=== PATIENT | male | born 1965 | race Caucasian/White ===

== ENCOUNTER 2020-08-19 08:03 | Outpatient (REF) | payer OTHER, SELFPAY ==
[2020-08-19 09:01] LABS: MANUAL DIFF FLAG NO
[2020-08-19 09:03] LABS: Basophils Percent Auto 0.4 % (0-2); Eosinophils Absolute Auto 0.1 X10*3/uL (0.0-0.4); Eosinophils Percent Auto 1.5 % (0-4); Hemoglobin 19.5 g/dl (14.0-18.0); Imm Gran Abs Auto 0.03 X10*3/uL (0.00-0.03); Imm Gran Pct Auto 0.4 % (0.0-0.4); Lymphocytes Absolute Auto 1.8 X10*3/uL (1.2-4.9); Lymphocytes Percent Auto 22.1 % (20-40); Mean Corpuscular HGB Conc 33.4 g/dl (31.0-36.0); Mean Corpuscular Hemoglobin 29.3 pg (27.0-33.0); Mean Corpuscular Volume 87.8 fL (80-98); Mean Platelet Volume 10.3 fL (9.4-12.4); Monocytes Absolute Auto 0.6 X10*3/uL (0.1-1.2); Monocytes Percent Auto 7.4 % (2-11); Neutrophils Absolute Auto 5.6 X10*3/uL (2.0-8.3); Neutrophils Percent Auto 68.2 % (45-73); Platelet Count 269 X10*3/uL (160-400); Red Blood Count 6.65 X10*6/uL (4.60-5.80); Red Cell Distribution Width 13.8 % (11.0-16.0); White Blood Count 8.2 X10*3/uL (4.8-10.8)
[2020-08-19 09:04] LABS: Glucose Urine UA NEG (NEG); Leukocyte Esterase Urine NEG (NEG); Nitrite Urine NEG (NEG); Urine Blood NEG (NEG); Urine Ketones NEG (NEG); Urine Protein NEG (NEG-TRACE)
[2020-08-19 09:05] LABS: Appearance Urine CLEAR; Color Urine YELLOW
[2020-08-19 09:08] LABS: Hematocrit 58.4 % (42-52)
[2020-08-19 09:27] LABS: Alanine Aminotransferase 40 U/L (0-40); Albumin Level 4.5 g/dL (3.5-5.0); Alkaline Phosphatase 73 U/L (39-117); Anion Gap 13 (12-20); Aspartate Amino Transferase 34 U/L (5-37); Bilirubin Total 2.5 mg/dL (0.0-1.0); Blood Urea Nitrogen 15 mg/dL (9-16); C Reactive Protein 0.16 mg/dL (< or = 0.50); Calcium 8.9 mg/dL (8.4-10.2); Carbon Dioxide 26 mmol/L (22-29); Chloride 103 mmol/L (96-108); Cholesterol 211 mg/dL; Estimated Glomerular Filt Rate > 60; Glucose Fasting 90 mg/dL (60-99); HDL Cholesterol 52 mg/dL; LDL Cholesterol Calculated 137 mg/dl; Potassium 4.3 mmol/l (3.3-5.1); Sodium 138 mmol/L (135-145); Total Protein 7.5 g/dL (6.5-8.0); Triglycerides 112 mg/dL
[2020-08-19 09:51] LABS: TSH reflex Free T4 3.04 mIU/mL (0.32-4.0)
[2020-08-19 09:53] LABS: Erythrocyte Sedimentation Rate 1 MM/HR (0-15)
[2020-08-20 11:13] LABS: Lyme Abs Screen <0.90 index
[2020-08-24 18:37] LABS: A. Phagocytophilum Ab IgG <1:64 (<1:64); A. Phagocytophilum Ab IgM <1:20 (<1:20); E. Chaffeensis Ab IgG <1:64 (<1:64); E. Chaffeensis Ab IgM <1:20 (<1:20)
== END 2020-08-19 08:04 | disposition home or self-care (01) ==
LOC: HO.LAB 08:03
PROVIDERS: PCP Internal Medicine; Visit Provider Internal Medicine
DX: I10 Essential (primary) hypertension (principal); Z86.19 Personal history of other infectious and parasitic diseases; E78.00 Pure hypercholesterolemia, unspecified; E66.9 Obesity, unspecified
CPT/HCPCS: 36415; 80053; 80061; 81003; 82550; 84443; 85025; 85652; 86140; 86618; 86666

== ENCOUNTER 2021-05-13 10:26 | Outpatient (REF) | payer OTHER, SELFPAY ==
[2021-05-13 10:39] LABS: MANUAL DIFF FLAG NO
[2021-05-13 10:57] LABS: Basophils Percent Auto 0.3 % (0-2); Eosinophils Absolute Auto 0.2 X10*3/uL (0.0-0.4); Eosinophils Percent Auto 2.1 % (0-4); Hemoglobin 19.8 g/dl (14.0-18.0); Imm Gran Abs Auto 0.05 X10*3/uL (0.00-0.03); Imm Gran Pct Auto 0.5 % (0.0-0.4); Lymphocytes Absolute Auto 1.6 X10*3/uL (1.2-4.9); Lymphocytes Percent Auto 17.5 % (20-40); Mean Corpuscular HGB Conc 32.9 g/dl (31.0-36.0); Mean Corpuscular Hemoglobin 29.2 pg (27.0-33.0); Mean Corpuscular Volume 88.8 fL (80-98); Mean Platelet Volume 9.9 fL (9.4-12.4); Monocytes Percent Auto 10.5 % (2-11); Neutrophils Absolute Auto 6.3 X10*3/uL (2.0-8.3); Neutrophils Percent Auto 69.1 % (45-73); Platelet Count 242 X10*3/uL (160-400); Red Blood Count 6.77 X10*6/uL (4.60-5.80); Red Cell Distribution Width 13.7 % (11.0-16.0); White Blood Count 9.2 X10*3/uL (4.8-10.8)
[2021-05-13 11:09] LABS: Hematocrit 60.1 % (42-52)
[2021-05-13 11:20] LABS: Alanine Aminotransferase 33 U/L (0-40); Albumin Level 4.5 g/dL (3.5-5.0); Alkaline Phosphatase 79 U/L (39-117); Anion Gap 12 (12-20); Aspartate Amino Transferase 27 U/L (5-37); Bilirubin Total 3.3 mg/dL (0.0-1.0); Blood Urea Nitrogen 22 mg/dL (9-16); Carbon Dioxide 30 mmol/L (22-29); Chloride 105 mmol/L (96-108); Cholesterol 264 mg/dL; Estimated Glomerular Filt Rate > 60; Glucose Fasting 85 mg/dL (60-99); HDL Cholesterol 59 mg/dL; LDL Cholesterol Calculated 183 mg/dl; Potassium 4.9 mmol/L (3.3-5.1); Sodium 142 mmol/L (135-145); Total Protein 7.6 g/dL (6.5-8.0); Triglycerides 111 mg/dL
[2021-05-13 11:36] LABS: Appearance Urine CLEAR; Color Urine YELLOW; Glucose Urine UA NEG (NEG); Leukocyte Esterase Urine NEG (NEG); Nitrite Urine NEG (NEG); Specific Gravity - Urine 1.025 (1.005-1.025); Urine Blood NEG (NEG); Urine Ketones NEG (NEG); Urine Protein TRACE MG/DL (NEG-TRACE)
[2021-05-13 11:47] LABS: TSH reflex Free T4 2.67 uIU/mL (0.32-4.0)
[2021-05-18 13:42] LABS: Testosterone, Free 418.3 pg/mL (35.0-155.0); Testosterone, Total 1673 ng/dL (250-1100)
== END 2021-05-13 10:27 | disposition home or self-care (01) ==
LOC: HO.LAB 10:26
PROVIDERS: PCP Internal Medicine; Visit Provider Internal Medicine
DX: I10 Essential (primary) hypertension (principal); E78.00 Pure hypercholesterolemia, unspecified; E34.9 Endocrine disorder, unspecified
CPT/HCPCS: 36415; 80053; 80061; 81003; 84402; 84403; 84443; 85025

== ENCOUNTER 2022-07-11 12:50 | Outpatient (AMB) | payer OTHER, SELFPAY ==
--- OUTSIDE RECORDS SUMMARY | 2022-07-11 12:51 | XMS_ITS | Continuity of Care Document ---
:1965 Author Organization [facility] Address [address] [place] [address]- Care Team Providers Name Role Phone Enrike Murillo MD Primary Care Physician [place] [facility] [place] Date(s): 09/06/20 - 12/12/20 [facility] [address] [place], [place] [address] Discharge Disposition: A-D/C Home Attending Physician: Monica AVILA(Hem/Onc), Cas Sullivan Admitting Physician: Monica AVILA(Hem/Onc), Cas Sullivan Referring Physician: Enrike Murillo MD Allergies, Adverse Reactions, Alerts Substance Reaction Severity Status NKA Active Immunizations Given and Recorded Vaccine Date Status Refusal Reason diphtheria-tetanus toxoids (DT) 01/07/07 Given Medications needle 25G, 1&1/2 inch needle 25G, 1&1/2 inch, See Instructions, # 4 each, Refills 1, Tot. Refills 1, for use with 3cc syringe for testosterone injection q14 days, 06/21/09 12:50:55 Start Date: 06/21/09 Status: OrderedPercocet-10/325 oral tablet See Instructions, 6 tabs po daily divided, reduce by 1 tab daily every 5 days to 1 tab daily, # 105 tablet, 0 Refills Start Date: 08/23/09 Stop Date: 12/09/08 Status: Orderedsyringe 3cc 21G 1&1/2 inch syringe 3cc 21G 1&1/2 inch, See Instructions, # 4 each, Refills 1, Tot. Refills 1, for use with testosterone every 2 weeks, 06/21/09 12:51:32 Start Date: 06/21/09 Status: Orderedtestosterone cypionate 200 mg/ml intramuscular solution See Instructions, 150mg (0.75ml) IM every 10 days, # 10 mL, 2 Refills, androgen deficiency Start Date: 04/08/09 Stop Date: 02/25/09 Status: Ordered Problem List Condition Effective Dates Status Health Status Informant Androgen deficiency(Confirmed)1 Active Body mass index index 25-29 - Active overweight(Confirmed) Drug interaction(Confirmed)2 Active Hypercholesterolemia(Confirmed) Active Hypertension(Confirmed) Active Hypertriglyceridemia(Confirmed) Active Multiple fracture of thoracic Active ; vertebrae(Confirmed)3 Multiple joint pain(Confirmed) Active Myofascial pain(Confirmed) Active Not getting enough sleep(Confirmed) Active Obstructive sleep apnea Active syndrome(Confirmed)4 Thoracic back pain(Confirmed)5 Active 1opioid treatment yejlfls5q/o myositis ; h/o tramadol treatment; ? h/o antidepressant and opioid co-treatment, h/o total CK>3103T7 & O20xmzzbperll severe, AHI 22.8, with lowest O2 saturation 86%5s/p vertebral fractures at T7 and T8 Vital Signs Most recent to oldest [Reference Range]: 1 Height 183.0 cm (10/12/20 11:44 AM) Weight 100.9 kg (10/12/20 11:44 AM) Pulse Rate [55-90 bpm] 102 bpm *H* (10/12/20 11:44 AM) Body Mass Index [18.5-24.99] 30.13 *>HHI* (10/12/20 11:44 AM) Blood Pressure [90-138/55-84 mm Hg] 191/121 mm Hg *H* (10/12/20 11:44 AM) Temperature [96.8-100.4 DegF] 97.8 DegF (10/12/20 11:44 AM) Blood pressure sites Arm, right (10/12/20 11:44 AM) Temperature Route Temporal (10/12/20 11:44 AM) Dry Weight 100.9 kg (10/12/20 11:44 AM) Weight Obtained Via Standing scale (10/12/20 11:44 AM) Dry Weight Obtained Via Standing scale (10/12/20 11:44 AM)
--- OUTSIDE RECORDS SUMMARY | 2022-07-11 12:51 | XMS_ITS | Continuity of Care Document ---
:1965 Author Organization [facility] Address [address] [place] [address]- Care Team Providers Name Role Phone Enrike Murillo MD Primary Care Physician Encounter [facility] Date(s): 03/26/21 - 04/29/21 [facility] [address] [place] [address]- Attending Physician: Kristen AVILA, Tremaine Anderson Referring Physician: Monica AVILA(Hem/Onc), Cas Sullivan Allergies, Adverse Reactions, Alerts Substance Reaction Severity [...] syndrome(Confirmed)4 Thoracic back pain(Confirmed)5 Active 1opioid treatment ccbfsvm8s/o myositis ; h/o tramadol treatment; ? h/o antidepressant and opioid co-treatment, h/o total CK>3103T7 & [id number] severe, AHI 22.8, with lowest O2 saturation 86%5s/p vertebral fractures at T7 and T8
--- OUTSIDE RECORDS SUMMARY | 2022-07-11 12:51 | XMS_ITS | Continuity of Care Document ---
:1965 Author Organization [facility] Address [address] [place] [address]- Care Team Providers Name Role Phone Enrike Murillo MD Primary Care Physician Encounter [facility] [place] Date(s): 10/10/21 - 11/09/21 [facility] [address] [place], [place] [address] Attending Physician: Marcin Otero Admitting Physician: Marcin Otero Referring Physician: Marcin Otero Allergies, Adverse Reactions, Alerts No Known Allergies Immunizations Given and Recorded Vaccine Date Status Refusal Reason diphtheria-tetanus toxoids (DT) 01/07/07 Given Medications cloNIDine 0.1 mg oral tablet 0.1 mg, 1, tablet, By Mouth, 2 times a day, Refills 0, Maintenance, 09/22/21 21:32:00 EST, Partial fill upon patient request if the prescription is for a schedule II opioid drug. Start Date: 09/22/21 Status: OrderedLosartan By Mouth, Daily, 0 Refills, Maintenance, 09/22/21 21:32:00 EST, Partial fill upon patient request ifthe prescription is for a schedule II opioid drug. Start Date: 09/22/21 Status: Orderedneedle 25G, 1&1/2 inch needle 25G, 1&1/2 inch, [...] 25-29 - Active overweight(Confirmed) Drug interaction(Confirmed)2 Active Erythrocytosis(Confirmed) Active Hypercholesterolemia(Confirmed) Active Hypertension(Confirmed) Active Hypertriglyceridemia(Confirmed) Active Multiple fracture of thoracic Active ; vertebrae(Confirmed)3 Multiple joint pain(Confirmed) Active Myofascial pain(Confirmed) Active Not getting enough sleep(Confirmed) Active Obese class I(Confirmed) Active Obstructive sleep apnea Active syndrome(Confirmed)4 Thoracic back pain(Confirmed)5 Active 1opioid treatment tjbwrwq9m/o myositis ; h/o tramadol treatment; ? h/o antidepressant and opioid co-treatment, h/o total CK>3103T7 & H45cglkpoqyej severe, AHI 22.8, with lowest O2 saturation 86%5s/p vertebral fractures at T7 and T8
--- OUTSIDE RECORDS SUMMARY | 2022-07-11 12:51 | XMS_ITS | Continuity of Care Document ---
:1965 Author Organization [facility] Address [address] [place] [address]- Care Team Providers Name Role Phone Enrike Murillo MD Primary Care Physician Encounter [facility] Date(s): 03/30/21 - 04/29/21 [facility] [address] [place] [address]- Attending Physician: Marcin Otero Admitting Physician: Marcin Otero Referring Physician: Marcin Otero Allergies, Adverse Reactions, Alerts Substance Reaction Severity [...] syndrome(Confirmed)4 Thoracic back pain(Confirmed)5 Active 1opioid treatment romroya6f/o myositis ; h/o tramadol treatment; ? h/o antidepressant and opioid co-treatment, h/o total CK>3103T7 & C69mqltxubsnq severe, AHI 22.8, with lowest O2 saturation 86%5s/p vertebral fractures at T7 and T8
--- OUTSIDE RECORDS SUMMARY | 2022-07-11 12:51 | XMS_ITS | Continuity of Care Document ---
:1965 Author Organization [facility] Address [address] [place] [address]- Care Team Providers Name Role Phone Enrike Murillo MD Primary Care Physician Encounter [facility] Date(s): 09/22/21 - 09/22/[address] [address]- Discharge Disposition: A-D/C Home Attending Physician: Nicol Pimentel MD Admitting Physician: Nicol Pimentel MD Referring Physician: Not on Staff, Referring MD Allergies, Adverse Reactions, Alerts No Known Allergies Immunizations Given and Recorded Vaccine Date Status Refusal Reason diphtheria-tetanus toxoids (DT) 01/07/07 Given Medications cloNIDine 0.1 mg oral tablet 0.1 mg, 1, tablet, By Mouth, 2 times a day, Refills 0, Maintenance, 09/22/21 21:32:00 EST, Partial fill upon patient request if the prescription is for a schedule II opioid drug. Start Date: 09/22/21 Status: Orderederythromycin 0.5% ophthalmic ointment 0.5 inches, Eye, Left, 4 times a day, for 3 days, # 3.5 Gm, 0 Refills, Acute 09/25/21 22:19:00 EST, 09/22/21 22:19:00 EST, Ophth Ointment, [id number], Partial fill upon patient requestif the prescription is for a schedule II opioid d... Start Date: 09/22/21 Stop Date: 09/25/21 Status: OrderedLosartan By Mouth, Daily, 0 Refills, [...] syndrome(Confirmed)4 Thoracic back pain(Confirmed)5 Active 1opioid treatment eigqdhv8n/o myositis ; h/o tramadol treatment; ? h/o antidepressant and opioid co-treatment, h/o total CK>3103T7 & I19szfwuwcgcv severe, AHI 22.8, with lowest O2 saturation 86%5s/p vertebral fractures at T7 and T8 Vital Signs Most recent to oldest [Reference Range]: 1 2 Height 183 cm 183 cm (09/22/21 9:27 PM) (09/22/21 9:26 PM) Weight 100.7 kg (09/22/21 9:27 PM) Oxygen Saturation [94-100 %] 97 % (09/22/21 9:26 PM) Pulse Rate [55-90 bpm] 92 bpm *H* (09/22/21: PM) Blood Pressure [90-138/55-84 mm Hg] 191/119 mm Hg *H* (09/22/21: PM) Respiratory Rate [16-30 br/min] 18 br/min (09/22/21: PM) Temperature [96.8-100.4 DegF] 98 DegF (09/22/21 PM) Mode of Delivery (Oxygen) Room air (09/22/21 PM) Blood pressure sites Arm, right Arm, right (09/22/21: PM) (09/22/21: PM) Temperature Route Oral (09/22/21 PM) Dry Weight 100.7 kg 100.7 kg (09/22/21: PM) (09/22/21: PM) Dry Weight Obtained Via Standing scale (09/22/21: PM)
--- OUTSIDE RECORDS SUMMARY | 2022-07-11 12:51 | XMS_ITS | Continuity of Care Document ---
:1965 Author Organization [facility] Address [address] [place] [address]- Care Team Providers Name Role Phone Enrike Murillo MD Primary Care Physician Encounter [facility] Date(s): 08/16/21 - 09/15/21 [facility] [address] [place] [address]- Attending Physician: Marcin Otero Admitting Physician: Marcin [...] syndrome(Confirmed)4 Thoracic back pain(Confirmed)5 Active 1opioid treatment zecshjm9t/o myositis ; h/o tramadol treatment; ? h/o antidepressant and opioid co-treatment, h/o total CK>3103T7 & H92voqkzstdes severe, AHI 22.8, with lowest O2 saturation 86%5s/p vertebral fractures at T7 and T8
--- OUTSIDE RECORDS SUMMARY | 2022-07-11 12:51 | XMS_ITS | Continuity of Care Document ---
:1965 Author Organization [facility] Address [address] [place] [address]- Care Team Providers Name Role Phone Enrike Murillo MD Primary Care Physician Encounter [facility] Date(s): 01/31/21 - 03/06/21 [facility] [address] [place] [address]- Attending Physician: Kristen AVILA, Tremaine Anderson Referring [...] syndrome(Confirmed)4 Thoracic back pain(Confirmed)5 Active 1opioid treatment chmcvdg4t/o myositis ; h/o tramadol treatment; ? h/o antidepressant and opioid co-treatment, h/o total CK>3103T7 & D20nfzwwewftb severe, AHI 22.8, with lowest O2 saturation 86%5s/p vertebral fractures at T7 and T8
--- OUTSIDE RECORDS SUMMARY | 2022-07-11 12:51 | XMS_ITS | Continuity of Care Document ---
:1965 Author Organization [facility] Address [address] [place] [address]- Care Team Providers Name Role Phone Enrike Murillo MD Primary Care Physician [place] [facility] [place] 09[place]06[place]20 - 10/06/20 [facility] [address] [address] Attending Physician: Marcin Otero Admitting Physician: Marcin Otero Referring Physician: AdmtrMarcin Allergies, Adverse Reactions, Alerts Substance Reaction Severity [...] syndrome(Confirmed)4 Thoracic back pain(Confirmed)5 Active 1opioid treatment utyspoj9s/o myositis ; h/o tramadol treatment; ? h/o antidepressant and opioid co-treatment, h/o total CK>3103T7 & L59uvfzmazzsu severe, AHI 22.8, with lowest O2 saturation 86%5s/p vertebral fractures at T7 and T8
--- OUTSIDE RECORDS SUMMARY | 2022-07-11 12:52 | XMS_ITS | Continuity of Care Document ---
:1965 Author Organization [facility] Address [address] [place] [address]- Care Team Providers Name Role Phone Enrike Murillo MD Primary Care Physician [place] [facility] [place](s): 10/10/21 - 12/12/21 [facility] [address] [place], [place] [address] Discharge Disposition: A-D/C Home Attending Physician: Monica AVILA(Hem/Onc), Cas Sullivan Admitting Physician: Monica AVILA(Hem/Onc), Cas Sullivan Referring Physician: Enrike Murillo MD Allergies, Adverse Reactions, Alerts No Known [...] syndrome(Confirmed)4 Thoracic back pain(Confirmed)5 Active 1opioid treatment bahohhy8u/o myositis ; h/o tramadol treatment; ? h/o antidepressant and opioid co-treatment, h/o total CK>3103T7 & L92tkkovsidpu severe, AHI 22.8, with lowest O2 saturation 86%5s/p vertebral fractures at T7 and T8 Vital Signs Most recent to oldest [Reference Range]: 1 Height 183 cm (10/12/21 9:59 AM) Weight 100.6 kg (10/12/21 9:59 AM) Pulse Rate [55-90 bpm] 102 bpm *H* (10/12/21 9:59 AM) Body Mass Index [18.5-24.99] 30.04 *>HHI* (10/12/21 9:59 AM) Blood Pressure [90-138/55-84 mm Hg] 186/117 mm Hg *H* (10/12/21 9:59 AM) Temperature [96.8-100.4 DegF] 97.5 DegF (10/12/21 9:59 AM) Blood pressure sites Arm, right (10/12/21 9:59 AM) Temperature Route Temporal (10/12/21 9:59 AM) Dry Weight 100.6 kg (10/12/21 9:59 AM) Weight Obtained Via Standing scale (10/12/21 9:59 AM) Dry Weight Obtained Via Standing scale (10/12/21 9:59 AM)
--- OUTSIDE RECORDS SUMMARY | 2022-07-11 12:52 | XMS_ITS | Continuity of Care Document ---
:1965 Author Organization [facility] Address [address] [place] [address]- Care Team Providers Name Role Phone Enrike Murillo MD Primary Care Physician Encounter [facility] Date(s): 12/24/20 - 01/27/21 [facility] [address] [place] [address]- Attending Physician: Kristen AVILA, Tremaine Anderson Referring [...] syndrome(Confirmed)4 Thoracic back pain(Confirmed)5 Active 1opioid treatment komydat3l/o myositis ; h/o tramadol treatment; ? h/o antidepressant and opioid co-treatment, h/o total CK>3103T7 & A21rdaoufseiv severe, AHI 22.8, with lowest O2 saturation 86%5s/p vertebral fractures at T7 and T8
--- OUTSIDE RECORDS SUMMARY | 2022-07-11 12:52 | XMS_ITS | Continuity of Care Document ---
:1965 Author Organization [facility] Address [address] [place] [address]- Care Team Providers Name Role Phone Enrike Murillo MD Primary Care Physician Encounter [facility] Date(s): 08/12/21 - 09/15/21 [facility] [address] [place] [address]- Attending Physician: Kristen AVILA, Tremaine Anderson Referring Physician: Monica AVILA(Hem/Onc), Cas Sullivan Allergies, Adverse Reactions, Alerts No Known Allergies [...] syndrome(Confirmed)4 Thoracic back pain(Confirmed)5 Active 1opioid treatment rnkxluu1c/o myositis ; h/o tramadol treatment; ? h/o antidepressant and opioid co-treatment, h/o total CK>3103T7 & H49mgqoeftivv severe, AHI 22.8, with lowest O2 saturation 86%5s/p vertebral fractures at T7 and T8
--- OUTSIDE RECORDS SUMMARY | 2022-07-11 12:52 | XMS_ITS ---
:1965 Author Care Team Providers Name Role Phone NAHUM SINGH MD Primary Care Provider [phone] Allergies Code Code System Name Reaction Severity Status Onset NKDA ? Medications Name Status Start Date Stop Date ? ? atorvastatin 10 mg tablet Active ? Not av ailable azithromycin 250 mg tablet Completed ? 10/09 BD Luer-Say Syringe 3 mL 25 gauge x 1 Active ? Not available BD PrecisionGlide 25 gauge x 1 needle Active ? Not available U Q WEEK BD Regular Bevel [place] 19 gauge x 1 Active ? Not available USE TO INJECT TESTOSTERONE Q WEEK BD SafetyGlide Syringe 3 mL 23 x 1 Active ? Not available USE DIRECTED ONCE A WEEK IM clonidine HCl 0.2 mg tablet Active ? Not available TK 1 T PO BID cyclobenzaprine 10 mg tablet Active ? Not available ibuprofen 800 mg tablet Active ? Not avai lable losartan 50 mg tablet Active ? Not availa ble oxycodone 15 mg tablet Active ? Not avail able testosterone cypionate 200 mg/mL intramuscular oil Active ? Not available tizanidine 4 mg tablet Active ? Not avail able Problems Name Status Onset Date Source ? Arthritis of Right Hip Active ? ? Procedures Notes: Uvulectomy a few years ago Results Lab Results None recorded. Past Encounters None recorded. Social History Tobacco Smoking Status Never Smoker Vaccine List None recorded. Plan of Care Reminders Provider Appointments None recorded. ? ? Lab None recorded. ? ? Referral None recorded. ? ? Procedures None recorded. ? ? Surgeries None recorded. ? ? Imaging None recorded. ? ? Vitals Height Weight BMI Blood Pressure 6 ft 217 lbs 29.4 kg/m2 (1) 195/106 mm[ Hg] (2) 179/99 mm[Hg ]
[2022-07-11 12:53] VITALS: BP 148/88; PULSE 101; TEMP 36.3; O2SAT 97; BMI 30.7
--- NOTE | 2022-07-11 12:53 | A.OFFPC_ITS ---
Vital Signs 07/11/22 12:53 Height 6 ft Weight 227 lb BMI 30.7 BP 148/88 H Blood Pressure Location Lt brachial Position Sitting Pulse 101 H Pulse Source Pulse Oximeter Temp 97.3 F Temp Source Skin Pulse Oximetry (%) 97 Oxygen Delivery Method Room Air Intake Visit Reasons: 3 month follow up Allergies No Known Allergies Allergy (Verified 07/18/23 16:12) Medication List - Last Reconciled 07/11/22 by Enrike Murillo MD atorvastatin 10 mg PO DAILY 90 days clonidine HCl 0.2 mg PO DAILY 90 days ibuprofen 800 mg PO TID PRN losartan 100 mg PO DAILY 90 days oxycodone 15 mg PO Q6H PRN 28 days syringe with needle (BD Luer-Say Syringe) 1 IM every week; testosterone cypionate 100 mg (0.5 mL) IM QWEEK 28 days tizanidine 4 mg PO BID PRN 30 days Tobacco use date assessed: 11/09/21 HPI 3 month follow up HPI Details Patient comes in today for his follow up visit States that he currently has increased pain over the back of his neck - thinks that he may have pulled a muscle in his neck while lifting something earlier this morning States that his feet are also currently throbbing (in pain) - thinks that this is withdrawal pain as he forgot to take his middle dose of his pain med yesterday He presently denies any headaches or dizziness Denies any chest pains, no SOB No nausea/vomiting, no abdominal pain No change in bowel habits noted He has also noticed some decrease his urine stream lately when he is using the bathroom - notes that it takes a longer time for him to finish urinating nowadays; he denies any nocturia or dysuria Is wondering if taking some Flomax will help with his symptoms He has no follow up labs done lately - labs were last done in May 2021 [facility] Medical History History of obstructive sleep apnea Hypotestosteronism Polycythemia Pure hypercholesterolemia History of Lyme disease Obesity (BMI 30-39.9) Anxiety Primary insomnia Lumbar degenerative disc disease Primary osteoarthritis of right hip Benign essential hypertension Surgical History History of nasal septoplasty History of arthroplasty of right hip Family History Father Pancreatic cancer Mother Brain tumor Social History Housing: Apartment Alcohol intake: never Patient Tobacco Use Status: Never used Tobacco e-Cigarette/Vaping Use: Never Used Second Hand Smoke Exposure: No service: No Current occupational status: employed Cognitive needs: No Hearing needs: No Vision needs: No Questionnaire PHQ-9 Over the last 2 weeks, how often have you been bothered by any of the following problems? 1. Little interest or pleasure in doing things: not at all 2. Feeling down, depressed, or hopeless: not at all 3. Trouble falling or staying asleep, or sleeping too much: not at all 4. Feeling tired or having little energy: not at all 5. Poor appetite or overeating: not at all 6. Feeling bad about yourself - or that you are a failure or have let yourself or your family down: not at all 7. Trouble concentrating on things, such as reading the newspaper or watching television: not at all 8. Moving or speaking so slowly that other people could have noticed. Or the opposite - being so fidgety or restless that you have been moving around a lot more than usual: not at all 9. Thoughts that you would be better off or of hurting yourself in some way: not at all Total score: 0 Depression Screening Interpretation: Negative [id number] - PHQ-9 Billing: Yes Source: Developed by Drs. Gonzalo Riddle, Natali Silva, Jose Angel Quiroga and colleagues, with an educational ernie from [employer]. Thrive Questionnaire Date Thrive assessed: 11/09/21 Currently or been in a relationship where the following occur: no concerns repo rted AUDIT C Alcohol Use Questionnaire (AUDIT-C) 1. How often do you have a drink containing alcohol?: Never 3. How often do you have six or more drinks on one occasion?: Never Total Score: 0 Score Reviewed/Action Taken: Yes EUNICE-7 AMB Questionnaire EUNICE-7 Date EUNICE - 7 assessed: 11/09/21 Source: Developed by Drs. Gonzalo Riddle, Jose Angel Muhammad and colleagues, with an educational ernie from [employer]. Review of Systems Const Denies chills, Reports fatigue, Denies fever(s) and Denies headache(s) ENT Denies dysphagia, Denies dizziness, Denies otalgia, Denies headache(s), Reports neck pain (since this morning), Denies odynophagia, Denies sinus pain and Denies sore throat Card Denies chest pain, Denies palpitations and Denies dyspnea Resp Denies cough and Denies dyspnea GI Denies abdominal pain, Denies constipation, Denies dysphagia, Denies heartburn, Denies diarrhea, Denies nausea, Denies odynophagia and Denies vomiting Reports oliguria, Denies dysuria, Denies nocturia, Denies urinary frequency and Denies urinary urgency Musc Reports back pain (over the lower back), Reports arthralgias (multiple joints, especially over the hips) and Reports neck pain (since this morning) Skin/Breast Denies rash Neuro Details: (+) throbbing pain in both feet Denies dizziness and Denies headache(s) Endo Reports fatigue and Denies palpitations Physical exam (Primary Care) Vital Signs: Last Vital Signs Temp 97.3 F 07/11/22 12:53 Pulse 101 H 07/11/22 12:53 BP 148/88 H 07/11/22 12:53 Pulse Ox 97 07/11/22 12:53 Oxygen Delivery Method Room Air 07/11/22 12:53 BMI result Body Mass Index 30.7 Tobacco/Smoking Status: Tobacco use Status Tobacco use date assessed 11/09/21 07/11/22 12:57 Patient Tobacco Use Status Never used Tobacco 07/11/22 12:57 e-Cigarette/Vaping Use Never Used 07/11/22 12:57 PHQ-9: PHQ-9 Score PHQ-9: Total score 0 07/11/22 13:12 Depression Screening Interpretation: Negative Thrive Assessment: Date of Thrive Assessment Date Thrive assessed 11/09/21 07/11/22 12:57 Currently or been in a relationship where the following occur: no concerns r eported Const General: no acute distress and alert HENMT Ears: TM's normal bilaterally and EAC's normal Throat: Yes posterior oropharynx normal and Yes tonsils normal (no TP congestion noted) Neck Neck: Yes no lymphadenopathy and Yes supple Resp Auscultation: clear to auscultation bilaterally, no rales and no wheezes Cardio Rate: regular rate Rhythm: regular rhythm Heart sounds: no murmurs GI Palpation (GI): Soft to palpation and nontender Auscultation: normal bowel sounds Back/Spine/Pelvis Cervical Spine: cervical muscular tenderness (bilaterally) Thoracic/Lumbar Spine: lumbar spinal tenderness Skin Rashes: no rashes Extrem General: Yes no clubbing, cyanosis or edema Assessment and Plan Assessment & Plan (1) Pure hypercholesterolemia: Code(s): E78.00 - Pure hypercholesterolemia, unspecified Plan: Patient has not had any follow up labs done since May 2021 (over a year ago) and he is urged to try to get his previously ordered follow-up labs done KAREN Reinforced low cholesterol diet Continue Atorvastatin 10 mg QD for now Will recheck his labs again in 4 months for follow up (2) Polycythemia: Code(s): D75.1 - Secondary polycythemia Plan: Cautioned that his H/H was still significantly elevated when they were last checked - is most likely due to his high dose testosterone use (patient injects himself with testosterone weekly) Patient states that he has been going for phlebotomy every few weeks for the past few months now and has been following up with Hematology at [facility] for the past few months - to continue following up with Dr. Anderson as scheduled Cautioned patient again on the potential dangers and risks of polycythemia, including stroke (3) Benign essential hypertension: Code(s): I10 - Essential (primary) hypertension Plan: Reinforced low-sodium diet - goal is systolic BP of at least 120 to 130 mm or less States that his blood pressure readings have been consistently much lower when he checks his blood pressure at home Continue Losartan 50 mg 1 and 1/2 tablets (75 mg) once a day for now - advised that his blood pressure may improve with the reduction in dose of his testosterone injections as well as his continued phlebotomy Patient is instructed to continue monitoring his blood pressure at home regularly/closely (4) Hypotestosteronism: Comment: Is mostly iatrogenic and NOT age-related Code(s): E34.9 - Endocrine disorder, unspecified Plan: Serum testosterone level was high when last checked - patient was advised that he had overcorrected his serum testosterone level and at this time, does not need to continue dosing his testosterone injection weekly and can try lowering his dose to 1 injection every 2 weeks Advised that his testosterone injections are most likely contributing to his polycythemia (5) Primary osteoarthritis of right hip: Comment: S/P total right hip arthroplasty at [facility] on 01/14/2020; S/P physical therapy Code(s): M16.11 - Unilateral primary osteoarthritis, right hip Plan: States that his hip pain has improved?only minimally since his hip surgery Follow-up with Orthopedics as scheduled (6) Lumbar degenerative disc disease: Code(s): M51.36 - Other intervertebral disc degeneration, lumbar region Plan: Reinforced activity and weight lifting restrictions Continue Oxycodone 15 mg every 6 hours as needed, Tizanidine 4 mg twice a day as needed and Ibuprofen 800 mg 3 times a day with food as needed for pain (7) Decreased urine stream: Code(s): R39.198 - Other difficulties with micturition Plan: Symptoms are most likely due to BPH Will add serum PSA to his labs and he is advised to get this as well as his previously ordered labs done KAREN for follow up/further evaluation Will start him for now on a trial of Tamsulosin 0.4 mg QHS Advised that he will need to see urology for further evaluation if this does not help or if his symptoms continue progressing (8) Primary insomnia: Code(s): F51.01 - Primary insomnia Plan: Sleep hygiene reinforced Continue Trazodone 50 mg 1-2 tablets daily at bedtime as needed (9) Anxiety: Code(s): F41.9 - Anxiety disorder, unspecified Plan: Continue Lorazepam 0.5 mg 1 to 3 times a day as needed Follow-up with Psychiatry as scheduled (10) Obesity (BMI 30-39.9): Code(s): E66.9 - Obesity, unspecified Plan: Reinforced diet/exercise as tolerated/lose weight Plan Follow up n 4 months Orders: Orders Prostate Specific Antigen 07/11/22 N40.0 - Benign prostatic hyperplasia without lower urinary tract symptoms, R39.198 - Other difficulties with micturition Lipid Panel 4 Months E78.00 - Pure hypercholesterolemia, unspecified Comprehensive [place]. Panel Fast 4 Months E78.00 - Pure hypercholesterolemia, unspecified Medications: New tamsulosin 0.4 mg PO BEDTIME 90 caps 1RF 90 days N40.1 - Benign prostatic hyperplasia with lower urinary tract symptoms, R35.1 - Nocturia Coding Level of Care Code Est Pt Level 4 (72179) Diagnoses Pure hypercholesterolemia E78.00 Polycythemia D75.1 Benign essential hypertension I10 Hypotestosteronism E34.9 Primary osteoarthritis of right hip M16.11 Lumbar degenerative disc disease M51.36 Decreased urine stream R39.198 Primary insomnia F51.01 Anxiety F41.9 Obesity (BMI 30-39.9) E66.9
== END 2022-07-11 13:26 | disposition home or self-care (01) ==
LOC: HO.HMGH 12:50
PROVIDERS: PCP Internal Medicine; Visit Provider Internal Medicine
DX: I10 Essential (primary) hypertension (principal); E78.00 Pure hypercholesterolemia, unspecified; E66.9 Obesity, unspecified; Z68.30 Body mass index [BMI] 30.0-30.9, adult; D75.1 Secondary polycythemia; E34.9 Endocrine disorder, unspecified; M16.11 Unilateral primary osteoarthritis, right hip; M51.36 Other intervertebral disc degeneration, lumbar region; R39.198 Other difficulties with micturition; F51.01 Primary insomnia; F41.9 Anxiety disorder, unspecified
CPT/HCPCS: 99214

== ENCOUNTER 2022-11-03 11:28 | Outpatient (REF) | payer OTHER, SELFPAY ==
[2022-11-03 11:47] LABS: MANUAL DIFF FLAG NO
[2022-11-03 12:20] LABS: Basophils Percent Auto 0.4 % (0-2); Eosinophils Absolute Auto 0.3 X10*3/uL (0.0-0.4); Eosinophils Percent Auto 3.1 % (0-4); Hemoglobin 19.8 g/dl (14.0-18.0); Imm Gran Abs Auto 0.07 X10*3/uL (0.00-0.03); Imm Gran Pct Auto 0.8 % (0.0-0.4); Lymphocytes Absolute Auto 2.3 X10*3/uL (1.2-4.9); Lymphocytes Percent Auto 27.1 % (20-40); Mean Corpuscular HGB Conc 33.6 g/dl (31.0-36.0); Mean Corpuscular Hemoglobin 29.6 pg (27.0-33.0); Mean Platelet Volume 10.1 fL (9.4-12.4); Monocytes Absolute Auto 0.6 X10*3/uL (0.1-1.2); Monocytes Percent Auto 7.3 % (2-11); Neutrophils Absolute Auto 5.2 x10*3/uL (2.0-8.3); Neutrophils Percent Auto 61.3 % (45-73); Platelet Count 224 X10*3/uL (160-400); Red Blood Count 6.69 X10*6/uL (4.60-5.80); Red Cell Distribution Width 14.8 % (11.0-16.0); White Blood Count 8.4 X10*3/uL (4.8-10.8)
[2022-11-03 12:21] LABS: Hematocrit 58.9 % (42.0-52.0)
[2022-11-03 12:56] LABS: Alanine Aminotransferase 37 U/L (0-40); Albumin Level 4.5 g/dL (3.5-5.0); Alkaline Phosphatase 80 U/L (39-117); Anion Gap 15 (12-20); Aspartate Amino Transferase 23 U/L (5-37); Bilirubin Total 2.1 mg/dL (0.0-1.0); Blood Urea Nitrogen 21 mg/dL (9-16); Calcium 9.8 mg/dL (8.4-10.2); Carbon Dioxide 29 mmol/L (22-29); Chloride 105 mmol/L (96-108); Cholesterol 267 mg/dL; Estimated Glomerular Filt Rate > 60; Glucose Fasting 91 mg/dL (60-99); HDL Cholesterol 48 mg/dL; LDL Cholesterol Calculated 196 mg/dl; Potassium 4.7 mmol/L (3.3-5.1); Sodium 144 mmol/L (135-145); Total Protein 7.4 g/dL (6.5-8.0); Triglycerides 117 mg/dL
[2022-11-03 13:17] LABS: Prostate Specific Antigen 0.32 ng/mL (<0.05-4.0); TSH reflex Free T4 2.66 uIU/mL (0.32-4.0)
[2022-11-03 13:18] LABS: Appearance Urine Clear; Color Urine Yellow; Glucose Urine UA Negative (Negative); Leukocyte Esterase Urine Negative (Negative); Nitrite Urine Negative (Negative); PH 7.5 (5.0-9.0); Urine Blood Negative (Negative); Urine Ketones Negative (Negative); Urine Protein Trace mg/dL (Neg-Trace)
[2022-11-03 13:55] LABS: Vitamin D 25-OH Total 35.3 ng/mL (>30)
== END 2022-11-03 11:29 | disposition home or self-care (01) ==
LOC: HO.LAB 11:28
PROVIDERS: PCP Internal Medicine; Visit Provider Internal Medicine
DX: Z12.5 Encounter for screening for malignant neoplasm of prostate (principal); I10 Essential (primary) hypertension; E55.9 Vitamin D deficiency, unspecified; N40.0 Benign prostatic hyperplasia without lower urinary tract symptoms; R39.198 Other difficulties with micturition; E78.00 Pure hypercholesterolemia, unspecified
CPT/HCPCS: 36415; 80053; 80061; 81003; 82306; 84153; 84443; 85025

== ENCOUNTER 2023-07-18 15:38 | Outpatient (AMB) | payer OTHER, SELFPAY ==
[2023-07-18 15:40] VITALS: BP 124/72; PULSE 97; O2SAT 95; BMI 30.7
--- NOTE | 2023-07-18 15:40 | MHC.PC.OV ---
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: No Accompanied by: Self / Same As Patient Allergies No Known Allergies Allergy (Verified 07/18/23 16:12) Medication List - Last Reconciled 07/18/23 by Enrike Murillo MD [Syringe needle (disposable) 18G x 1 ml As directed] atorvastatin 40 mg PO DAILY 90 days clonidine HCl 0.2 mg PO DAILY 90 days ibuprofen 800 mg PO TID PRN losartan 100 mg PO DAILY 90 days needle (disp) 19 G use for testosterone injections ONCE A WEEK (3 months' supply) oxycodone 15 mg PO Q6H 28 days syringe with needle (BD Luer-Say Syringe) 1 IM every week; testosterone cypionate 100 mg IM QWEEK 28 days tizanidine 4 mg PO BID PRN 30 days Tobacco use date assessed: 07/18/23 Dental Screening Dental Screen Date: 07/18/23 Did you have a dental visit in the last 12 months?: Yes Did you have a dental problem in the last 6 months where you did not have access to dental care?: No Was dental information given to patient?: Patient has dentist MAYRA oh HPI Details Patient comes in today for his annual physical examination States that he currently feels okay Has been able to lose a lot of weight recently and has noticed that his blood pressure has been a lot better lately He denies any headaches or dizziness Denies any chest pains, no shortness of breath No nausea / vomiting, no abdominal pain No change in bowel habits noted Denies any acute urinary symptoms He has not had any follow up labs done recently He was referred for a screening colonoscopy back in 2013 but it looks like patient never scheduled this He claims that he had a colonoscopy done about 5 to 6 years ago somewhere in [place] but we have not been able to locate any records regarding this [facility] Medical History History of obstructive sleep apnea Hypotestosteronism Polycythemia Pure hypercholesterolemia History of Lyme disease Obesity (BMI 30-39.9) Anxiety Primary insomnia Lumbar degenerative disc disease Primary osteoarthritis of right hip Benign essential hypertension Surgical History History of nasal septoplasty History of arthroplasty of right hip Family History Father Pancreatic cancer Mother Brain tumor Social History Housing: Apartment Alcohol intake: never Patient Tobacco Use Status: Never used Tobacco e-Cigarette/Vaping Use: Never Used Second Hand Smoke Exposure: No service: No Current occupational status: employed Cognitive needs: No Hearing needs: No Vision needs: No Questionnaire PHQ-9 Over the last 2 weeks, how often have you been bothered by any of the following problems? 1. Little interest or pleasure in doing things: not at all 2. Feeling down, depressed, or hopeless: not at all 3. Trouble falling or staying asleep, or sleeping too much: not at all 4. Feeling tired or having little energy: not at all 5. Poor appetite or overeating: not at all 6. Feeling bad about yourself - or that you are a failure or have let yourself or your family down: not at all 7. Trouble concentrating on things, such as reading the newspaper or watching television: not at all 8. Moving or speaking so slowly that other people could have noticed. Or the opposite - being so fidgety or restless that you have been moving around a lot more than usual: not at all 9. Thoughts that you would be better off or of hurting yourself in some way: not at all Total score: 0 Depression Screening Interpretation: Negative Depression Screening Done: Yes 75805 - PHQ-9 Billing: Yes Source: Developed by Drs. Gonzalo Riddle, Natali Silva, Jose Angel Quiroga and colleagues, with an educational ernie from [employer]. Thrive Questionnaire Date Thrive assessed: 07/18/23 I am a: Patient What is your living situation today?: I have a steady place to live Within the past 12 months, did the food you bought not last and you didn't have the money to get more?: Never true Within the past 12 months, did you worry whether your food would run out before you got money to buy more?: Never true Do you have trouble paying for medicines?: No Do you have trouble getting transportation to medical appointments?: No Do you have trouble paying your heating and electricity bill?: No Do you have trouble taking care of your child, family member or friend?: No Do you have trouble with day-to-day activities such as bathing, preparing meals, shopping, managing finances, etc.?: No Are you currently unemployed and looking for a job?: No Are you interested in more education?: No Please select the resources that you would like help with: None Currently or been in a relationship where the following occur: no concerns reported AUDIT C Alcohol Use Questionnaire (AUDIT-C) 1. How often do you have a drink containing alcohol?: Never Total Score: 0 Score Reviewed/Action Taken: Yes EUNICE-7 AMB Questionnaire EUNICE-7 Date EUNICE - 7 assessed: 07/18/23 Feeling nervous, anxious, or on edge: 0 = Not at all Not being able to stop or control worryin = Not at all Worrying too much about different things: 0 = Not at all Trouble relaxin = Not at all Being so restless that it is hard to sit still: 0 = Not at all Becoming easily annoyed or irritable: 0 = Not at all Feeling afraid as if something awful might happen: 0 = Not at all Total EUNICE-7 score (0-4 normal; 5-9 mild; 10-14 moderate; 15-21 severe): 0 Source: Developed by Drs. Gonzalo Riddle, Natali Silva, Jose Angel Quiroga and colleagues, with an educational ernie from [employer]. Review of Systems Const Denies chills, Denies fatigue, Denies fever(s), Denies headache(s), Denies malaise and Denies weakness Eyes Denies blurry vision, Denies change in vision, Denies irritation and Denies itchy eyes ENT Denies dysphagia, Denies dizziness, Denies otalgia, Denies headache(s), Denies nasal congestion, Denies neck pain, Denies odynophagia and Denies sore throat Card Denies chest pain, Denies rapid heart rate, Denies irregular heart rhythm, Denies palpitations and Denies dyspnea Resp Denies chest congestion, Denies cough, Denies dyspnea and Denies wheezing GI Denies abdominal pain, Denies bloating, Denies constipation, Denies dysphagia, Denies heartburn, Denies diarrhea, Denies nausea, Denies odynophagia and Denies vomiting Denies hematuria, Denies difficulty urinating, Denies dysuria, Denies urinary frequency and Denies urinary urgency Musc Reports back pain (over the lower back), Reports arthralgias (multiple joints, especially over the hips) and Denies neck pain Skin/Breast Denies change in pigmentation, Denies lesions, Denies rash and Denies unusual bruising Neuro Denies dizziness, Denies headache(s), Denies paresthesias and Denies weakness Endo Denies fatigue and Denies palpitations Aller/Immun Denies itchy eyes and Denies wheezing Physical exam (Primary Care) Vital Signs: Last Vital Signs Pulse 97 07/18/23 15:40 BP 124/72 07/18/23 15:40 Pulse Ox 95 07/18/23 15:40 Oxygen Delivery Method Room Air 07/18/23 15:40 BMI result Body Mass Index 30.7 Tobacco/Smoking Status: Tobacco use Status Tobacco use date assessed 07/18/23 07/18/23 15:42 Patient Tobacco Use Status Never used Tobacco 07/18/23 15:42 e-Cigarette/Vaping Use Never Used 07/18/23 15:42 PHQ-9: PHQ-9 Score PHQ-9: Total score 0 07/18/23 16:22 Depression Screening Interpretation: Negative Thrive Assessment: Date of Thrive Assessment Date Thrive assessed 07/18/23 07/18/23 15:42 Currently or been in a relationship where the following occur: no concerns reported Const General: no acute distress, alert and awake Orientation/consciousness: patient oriented x3 HENMT Head: Yes normocephalic and Yes atraumatic Ears: external ears normal, TM's normal bilaterally and EAC's normal General nose exam: No nasal discharge present Face and sinus: Yes normal facial exam and Yes sinuses nontender Teeth and gingiva: dentition normal Throat: Yes posterior oropharynx normal and Yes tonsils normal (no TP congestion) Eyes Eyelids: Yes eyelids normal Conjunctivae: conjunctivae normal Pupils: Equal, round and reactive pupils present EOM: EOMs intact bilaterally Neck Neck: Yes no lymphadenopathy and Yes supple Thyroid: Thyroid normal Resp Auscultation: clear to auscultation bilaterally, no rales and no wheezes Cardio Rate: regular rate Rhythm: regular rhythm Heart sounds: no murmurs GI Palpation (GI): Soft to palpation, nontender and No hepatosplenomegaly present Auscultation: normal bowel sounds General: Yes no CVA tenderness Back/Spine/Pelvis Back: no CVA tenderness Thoracic/Lumbar Spine: lumbar spinal tenderness Skin Lesions: no lesions Rashes: no rashes Neuro General: patient oriented x3, moves all extremities, no focal motor deficits and CN's II-XI intact bilaterally Cranial nerves: Yes Equal, round and reactive pupils present Cognition (Neuro): normal cognition Gait exam (Neuro): Normal gait present Extrem General: Yes no clubbing, cyanosis or edema Assessment and Plan Assessment & Plan (1) Annual physical exam: Code(s): Z00.00 - Encounter for general adult medical examination without abnormal findings Plan: Check labs KAREN Will try to find out more about when and where patient last had his screening colonoscopy done - claims he had this done somewhere in [place] about 5 to 6 years ago Review of his record only showed a referral for colonoscopy back in 2013 but he had no appointments or visits made regarding this subsequently He is advised that if we are not able to locate any records related to his last colonoscopy, we will have to refer him to GI for consideration for a repeat colonoscopy soon (2) Pure hypercholesterolemia: Code(s): E78.00 - Pure hypercholesterolemia, unspecified Plan: He is again cautioned/reminded his cholesterol levels were significantly elevated when they were last checked in October 2022 - total cholesterol was at 267 mg/dl and LDL cholesterol was at 196 mg/dl back then Reinforced low cholesterol diet Will have him recheck his fasting lipids [facility] for follow up Continue Atorvastatin 40 mg QD - this was increased from 10 mg to 40 mg at his last visit several months ago Will recheck his labs and fasting lipids in 4 months for follow up (3) Polycythemia: Code(s): D75.1 - Secondary polycythemia Plan: Cautioned that his H/H was still significantly elevated at 19.8/58.9 when he last had his CBC done back in October 2022 - is most likely due to his high dose testosterone use Patient states that he was going for phlebotomy every few weeks for a few months but has not done so lately Was following up with Hematology (Dr. Anderson) at [facility] but he has also not been back to see Dr. Anderson in a while now - last seen sometime in 2021 Cautioned patient again on the potential dangers and risks of polycythemia, including stroke He is advised to try to schedule a phlebotomy again KAREN and to contact Dr. Anderson's office to schedule a follow up appt with him KAREN as well (4) Benign essential hypertension: Code(s): I10 - Essential (primary) hypertension Plan: Reinforced low-sodium diet - goal is systolic BP of at least 120 to 130 mm or less States that his blood pressure readings have been consistently much lower when he checks his blood pressure at home and have also improved a lot lately with his recent weight loss Continue Losartan 50 mg 1 and 1/2 tablets (75 mg) QD - advised again that his blood pressure may improve with the reduction in dose of his testosterone injections as well as his continued phlebotomy Patient is reminded to continue monitoring his blood pressure regularly/closely (5) Hypotestosteronism: Comment: Is mostly iatrogenic and NOT age-related Code(s): E34.9 - Endocrine disorder, unspecified Plan: Serum testosterone level was high when last checked several months ago but he has not been able to get his testosterone Rx lately due to insurance requiring a prior authorization; states that he is currently still working on getting his Rx reapproved Will recheck his serum testosterone levels KAREN for follow up Advised again that his testosterone injections are most likely contributing to or causing his polycythemia (6) Primary osteoarthritis of right hip: Comment: S/P total right hip arthroplasty at [facility] on 01/14/2020; S/P physical therapy Code(s): M16.11 - Unilateral primary osteoarthritis, right hip Plan: States that his hip pain has improved?only minimally since his hip surgery Follow-up with Orthopedics as scheduled (7) Lumbar degenerative disc disease: Code(s): M51.36 - Other intervertebral disc degeneration, lumbar region Plan: Reinforced activity and weight lifting restrictions Continue Oxycodone 15 mg every 6 hours as needed, Tizanidine 4 mg twice a day as needed and Ibuprofen 800 mg 3 times a day with food as needed for pain Discussed again that IF he can try to come off his opioid Rx, then he should not need to continue taking his testosterone injection, which is most likely an iatrogenic result of his chronic opioid Rx, and his polycythemia should, at least in theory, start improving gradually, but patient has indicated in the past that he needs his pain med Rx to be able to continue working for a living and he is just not ready to give up his work yet at his current age (8) Primary insomnia: Code(s): F51.01 - Primary insomnia Plan: Sleep hygiene reinforced Continue Trazodone 50 mg 1-2 tablets daily at bedtime as needed (9) Anxiety: Code(s): F41.9 - Anxiety disorder, unspecified Plan: Continue Lorazepam 0.5 mg 1 to 3 times a day as needed Follow-up with Psychiatry as scheduled (10) Obesity (BMI 30-39.9): Code(s): E66.9 - Obesity, unspecified Plan: Reinforced diet/exercise as tolerated/lose weight - he has been able to lose about 12 pounds since his last visit in October 2022 Plan Follow up n 4 months Orders: Orders Lipid Panel 07/18/23 E78.00 - Pure hypercholesterolemia, unspecified, Z00.00 - Encounter for general adult medical examination without abnormal findings UA CC w/rflx Micro + Cult 07/18/23 R30.0 - Dysuria, Z00.00 - Encounter for general adult medical examination without abnormal findings Vitamin B12 and Folate 07/18/23 E53.8 - Deficiency of other specified B group vitamins, Z00.00 - Encounter for general adult medical examination without abnormal findings Erythropoietin (EPO) 07/18/23 D75.1 - Secondary polycythemia Lipid Panel 4 Months E78.00 - Pure hypercholesterolemia, unspecified Complete Blood Count Auto Diff 4 Months D75.1 - Secondary polycythemia Complete Blood Count Auto Diff 07/18/23 I10 - Essential (primary) hypertension, Z00.00 - Encounter for general adult medical examination without abnormal findings Comprehensive [place]. Panel Fast 07/18/23 E78.00 - Pure hypercholesterolemia, unspecified, Z00.00 - Encounter for general adult medical examination without abnormal findings TSH reflex Free T4 07/18/23 E78.00 - Pure hypercholesterolemia, unspecified, Z00.00 - Encounter for general adult medical examination without abnormal findings Vitamin D 25-OH Total 12/06/23 E55.9 - Vitamin D deficiency, unspecified, Z00.00 - Encounter for general adult medical examination without abnormal findings Ferritin 07/18/23 D75.1 - Secondary polycythemia Erythrocyte Sedimentation Rate 07/18/23 D75.1 - Secondary polycythemia Comprehensive [place]. Panel Fast 4 Months E78.00 - Pure hypercholesterolemia, unspecified Coding Level of Care Code Est Pt Prev Care 40-64y(19854) Diagnoses Annual physical exam Z00.00 Pure hypercholesterolemia E78.00 Polycythemia D75.1 Benign essential hypertension I10 Hypotestosteronism E34.9 Primary osteoarthritis of right hip M16.11 Lumbar degenerative disc disease M51.36 Primary insomnia F51.01 Anxiety F41.9 Obesity (BMI 30-39.9) E66.9
== END 2023-07-18 16:23 | disposition home or self-care (01) ==
PROVIDERS: PCP Internal Medicine; Visit Provider Internal Medicine
DX: Z00.00 Encounter for general adult medical examination without abnormal findings (principal); E78.00 Pure hypercholesterolemia, unspecified; D75.1 Secondary polycythemia; I10 Essential (primary) hypertension; E34.9 Endocrine disorder, unspecified; M16.11 Unilateral primary osteoarthritis, right hip; M51.36 Other intervertebral disc degeneration, lumbar region; F51.01 Primary insomnia; F41.9 Anxiety disorder, unspecified; E66.9 Obesity, unspecified
CPT/HCPCS: 99396

== ENCOUNTER 2023-07-20 11:18 | Outpatient (REF) | payer OTHER, SELFPAY ==
[2023-07-20 11:34] LABS: MANUAL DIFF FLAG NO
[2023-07-20 12:37] LABS: Basophils Percent Auto 0.4 % (0-2); Eosinophils Absolute Auto 0.1 X10*3/uL (0.0-0.4); Hemoglobin 19.7 g/dl (14.0-18.0); Imm Gran Abs Auto 0.07 X10*3/uL (0.00-0.03); Imm Gran Pct Auto 0.8 % (0.0-0.4); Lymphocytes Absolute Auto 2.1 X10*3/uL (1.2-4.9); Lymphocytes Percent Auto 23.6 % (20-40); Mean Corpuscular HGB Conc 33.2 g/dl (31.0-36.0); Mean Corpuscular Hemoglobin 29.1 pg (27.0-33.0); Mean Corpuscular Volume 87.6 fL (80.0-98.0); Mean Platelet Volume 10.4 fL (9.4-12.4); Monocytes Absolute Auto 0.5 X10*3/uL (0.1-1.2); Monocytes Percent Auto 5.6 % (2-11); Neutrophils Absolute Auto 6.2 x10*3/uL (2.0-8.3); Neutrophils Percent Auto 68.6 % (45-73); Platelet Count 245 X10*3/uL (160-400); Red Blood Count 6.78 X10*6/uL (4.60-5.80); Red Cell Distribution Width 14.3 % (11.0-16.0); White Blood Count 9.1 X10*3/uL (4.8-10.8)
[2023-07-20 12:39] LABS: Appearance Urine Clear; Color Urine Yellow; Glucose Urine UA Negative (Negative); Leukocyte Esterase Urine Negative (Negative); Nitrite Urine Negative (Negative); Urine Blood Negative (Negative); Urine Ketones Negative (Negative); Urine Protein Trace mg/dL (Neg-Trace)
[2023-07-20 12:44] LABS: Hematocrit 59.4 % (42.0-52.0)
[2023-07-20 13:36] LABS: Erythrocyte Sedimentation Rate 1 MM/HR (0-15)
[2023-07-20 14:58] LABS: Alanine Aminotransferase 43 U/L (0-40); Albumin Level 4.5 g/dL (3.5-5.0); Alkaline Phosphatase 72 U/L (39-117); Anion Gap 20 (12-20); Aspartate Amino Transferase 27 U/L (5-37); Bilirubin Total 1.7 mg/dL (0.0-1.0); Blood Urea Nitrogen 14 mg/dL (9-16); Carbon Dioxide 27 mmol/L (22-29); Chloride 105 mmol/L (96-108); Cholesterol 260 mg/dL (<200); Estimated Glomerular Filt Rate > 60; Ferritin 337 ng/mL (20-250); Glucose Fasting 92 mg/dL (60-99); HDL Cholesterol 55 mg/dL (>40); LDL Cholesterol Calculated 167 mg/dL (<100); Potassium 4.7 mmol/L (3.3-5.1); Sodium 147 mmol/L (135-145); TSH reflex Free T4 2.16 uIU/mL (0.32-4.0); Triglycerides 191 mg/dL (<150); Vitamin D 25-OH Total 32.7 ng/mL (>30)
[2023-07-20 16:04] LABS: Folate 12.4 ng/mL (> or = 4.0); Vitamin B12 755 pg/mL (200-900)
[2023-07-21 06:44] LABS: Erythropoietin (EPO) 4.7 mIU/mL (2.6-18.5)
[2023-07-25 19:28] LABS: Testosterone, Free 231.7 pg/mL (35.0-155.0); Testosterone, Total 1363 ng/dL (250-1100)
== END 2023-07-20 11:19 | disposition home or self-care (01) ==
LOC: HO.LAB 11:18
PROVIDERS: PCP Internal Medicine; Visit Provider Internal Medicine
DX: Z00.00 Encounter for general adult medical examination without abnormal findings (principal); E78.00 Pure hypercholesterolemia, unspecified; E53.8 Deficiency of other specified B group vitamins; D75.1 Secondary polycythemia; E55.9 Vitamin D deficiency, unspecified; R30.0 Dysuria; I10 Essential (primary) hypertension; R79.89 Other specified abnormal findings of blood chemistry
CPT/HCPCS: 36415; 80053; 80061; 81003; 82306; 82607; 82668; 82728; 82746; 84402; 84403; 84443; 85025; 85652

== ENCOUNTER 2024-03-03 17:25 | Outpatient (AMB) | payer OTHER, SELFPAY ==
[2024-03-03 17:26] VITALS: BP 138/90; BMI 30.2
--- NOTE | 2024-03-03 17:26 | A.OFFPC_ITS ---
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 Accompanied by: Self / Same As Patient Allergies No Known Allergies Allergy (Verified 03/03/24 17:49) Medication List - Last Reconciled 03/03/24 by Enrike Murillo MD [Syringe needle (disposable) 18G x 1 ml As directed] atorvastatin 40 mg PO DAILY 90 days clonidine HCl 0.2 mg PO DAILY 90 days ibuprofen 800 mg PO TID PRN losartan 100 mg PO DAILY 90 days needle (disp) 19 G use for testosterone injections ONCE A WEEK (3 months' supply) oxycodone 15 mg PO Q6H 28 days syringe with needle (BD Luer-Say Syringe) 1 IM every week; testosterone cypionate 100 mg (0.5 mL) IM QWEEK 28 days tizanidine 4 mg PO BID PRN 30 days Tobacco use date assessed: 03/03/24 Dental Screening Dental Screen Date: 03/03/24 Did you have a dental visit in the last 12 months?: No Did you have a dental problem in the last 6 months where you did not have access to dental care?: No Was dental information given to patient?: Patient has dentist HPI HTN/Hyperlipidemia/Polycythemia/Lumbar DDD/OA HPI Details Patient comes in today for his follow-up visit States that he feels okay He denies any headaches or dizziness Denies any chest pains, no shortness of breath No nausea/ vomiting, no abdominal pain No change in bowel habits noted States that his chronic joint pains remain adequately controlled on his current medications He has not had any follow-up labs done recently and has not had any repeat fasting lipid profile since July 2023 [facility] Medical History History of obstructive sleep apnea Hypotestosteronism Polycythemia Pure hypercholesterolemia History of Lyme disease Obesity (BMI 30-39.9) Anxiety Primary insomnia Lumbar degenerative disc disease Primary osteoarthritis of right hip Benign essential hypertension Surgical History History of nasal septoplasty History of arthroplasty of right hip Family History Father Pancreatic cancer Mother Brain tumor Social History Housing: Apartment Alcohol intake: never Patient Tobacco Use Status: Never used Tobacco e-Cigarette/Vaping Use: Never Used Second Hand Smoke Exposure: No service: No Current occupational status: employed Current occupational exposures/hazards: No Cognitive needs: No Hearing needs: No Vision needs: No Questionnaire PHQ-9 Over the last 2 weeks, how often have you been bothered by any of the following problems? 1. Little interest or pleasure in doing things: not at all 2. Feeling down, depressed, or hopeless: not at all 3. Trouble falling or staying asleep, or sleeping too much: not at all 4. Feeling tired or having little energy: not at all 5. Poor appetite or overeating: not at all 6. Feeling bad about yourself - or that you are a failure or have let yourself or your family down: not at all 7. Trouble concentrating on things, such as reading the newspaper or watching television: not at all 8. Moving or speaking so slowly that other people could have noticed. Or the opposite - being so fidgety or restless that you have been moving around a lot more than usual: not at all 9. Thoughts that you would be better off or of hurting yourself in some way: not at all Total score: 0 Depression Screening Interpretation: Negative Depression Screening Done: Yes 92641 - PHQ-9 Billing: Yes Source: Developed by Drs. Gonzalo Riddle, Natali Silva, Jose Angel Quiroga and colleagues, with an educational ernie from [employer]. Thrive Questionnaire Date Thrive assessed: 03/03/24 I am a: Patient What is your living situation today?: I have a steady place to live Within the past 12 months, did the food you bought not last and you didn't have the money to get more?: Never true Within the past 12 months, did you worry whether your food would run out before you got money to buy more?: Never true Do you have trouble paying for medicines?: No Do you have trouble getting transportation to medical appointments?: No Do you have trouble paying your heating and electricity bill?: No Do you have trouble taking care of your child, family member or friend?: No Do you have trouble with day-to-day activities such as bathing, preparing meals, shopping, managing finances, etc.?: No Are you currently unemployed and looking for a job?: No Are you interested in more education?: No Please select the resources that you would like help with: None Currently or been in a relationship where the following occur: No concerns reported THRIVE Score: 0 AUDIT C Alcohol Use Questionnaire (AUDIT-C) 1. How often do you have a drink containing alcohol?: Never 3. How often do you have six or more drinks on one occasion?: Never Total Score: 0 Score Reviewed/Action Taken: Yes EUNICE-7 AMB Questionnaire EUNICE-7 Date EUNICE - 7 assessed: 03/03/24 Feeling nervous, anxious, or on edge: 0 = Not at all Not being able to stop or control worryin = Not at all Worrying too much about different things: 0 = Not at all Trouble relaxin = Not at all Being so restless that it is hard to sit still: 0 = Not at all Becoming easily annoyed or irritable: 0 = Not at all Feeling afraid as if something awful might happen: 0 = Not at all Total EUNICE-7 score (0-4 normal; 5-9 mild; 10-14 moderate; 15-21 severe): 0 Source: Developed by Drs. Gonzalo Riddle, Natali Silva, Jose Angel Quiroga and colleagues, with an educational ernie from [employer]. Review of Systems Const Denies chills, Denies fatigue, Denies fever(s) and Denies headache(s) ENT Denies dysphagia, Denies dizziness, Denies otalgia, Denies headache(s), Denies neck pain, Denies odynophagia and Denies sore throat Card Denies chest pain, Denies irregular heart rhythm, Denies palpitations and Denies dyspnea Resp Denies cough, Denies dyspnea and Denies wheezing GI Denies abdominal pain, Denies constipation, Denies dysphagia, Denies heartburn, Denies diarrhea, Denies nausea, Denies odynophagia and Denies vomiting Denies difficulty urinating, Denies dysuria and Denies urinary frequency Musc Reports back pain (over the lower back), Reports arthralgias (multiple joints, especially over the hips) and Denies neck pain Skin/Breast Denies rash Neuro Denies dizziness, Denies headache(s) and Denies paresthesias Endo Denies fatigue and Denies palpitations Aller/Immun Denies wheezing Physical exam (Primary Care) Vital Signs: Last Vital Signs BP 138/90 H 03/03/24 17:26 BMI result Body Mass Index 30.2 Tobacco/Smoking Status: Tobacco use Status Tobacco use date assessed 03/03/24 03/03/24 17:32 Patient Tobacco Use Status Never used Tobacco 03/03/24 17:32 e-Cigarette/Vaping Use Never Used 03/03/24 17:32 PHQ-9: PHQ-9 Score PHQ-9: Total score 0 03/03/24 21:28 Depression Screening Interpretation: Negative Thrive Assessment: Date of Thrive Assessment Date Thrive assessed 03/03/24 03/03/24 17:32 Currently or been in a relationship where the following occur: No concerns reported Const General: no acute distress and alert HENMT Ears: TM's normal bilaterally and EAC's normal Throat: Yes posterior oropharynx normal and Yes tonsils normal (no TP co ngestion) Neck Neck: Yes no lymphadenopathy and Yes supple Thyroid: Thyroid normal Resp Auscultation: clear to auscultation bilaterally, no rales and no wheezes Cardio Rate: regular rate Rhythm: regular rhythm Heart sounds: no murmurs GI Palpation (GI): Soft to palpation and nontender Auscultation: normal bowel sounds General: Yes no CVA tenderness Back/Spine/Pelvis Back: no CVA tenderness Thoracic/Lumbar Spine: lumbar spinal tenderness Skin Rashes: no rashes Extrem General: Yes no clubbing, cyanosis or edema Assessment and Plan Assessment & Plan (1) Pure hypercholesterolemia: Code(s): E78.00 - Pure hypercholesterolemia, unspecified Plan: He is again cautioned/reminded his cholesterol levels were significantly elevated when they were last checked in July 2023 - total cholesterol was at 260 mg/dl and LDL cholesterol was at 167 mg/dl back then Reinforced low cholesterol diet Will have him recheck his fasting lipids [facility] for follow up Continue Atorvastatin 40 mg QD - this was increased from 10 mg to 40 mg last year Will recheck his labs and fasting lipids again in 4 months for follow up (2) Polycythemia: Code(s): D75.1 - Secondary polycythemia Plan: Patient is cautioned again that his H/H was still significantly elevated at 19.7/59.4 when he last had his CBC done back in July 2023 - is most likely due to his high dose testosterone use Patient states that he was going for phlebotomy every few weeks for a few months but has not done so lately He was following up with hematology (Dr. Anderson) at [facility] but he has also not been back to see Dr. Anderson in a while now - last seen sometime in 2021 Have cautioned patient again on the potential dangers and risks of polycythemia, including stroke He is advised to try to schedule a phlebotomy again KAREN and to contact Dr. Anderson's office to schedule a follow up appt with him KAREN as well (3) Benign essential hypertension: Code(s): I10 - Essential (primary) hypertension Plan: Reinforced low-sodium diet - goal is systolic BP of at least 120 to 130 mm or less States that his blood pressure readings have been consistently much lower when he checks his blood pressure at home and have also improved a lot when he previously lost weight Continue Losartan 50 mg 1 and 1/2 tablets (75 mg) QD - advised again that his blood pressure may improve with the reduction in dose of his testosterone injections as well as his continued phlebotomy Patient is reminded to continue monitoring his blood pressure regularly/closely (4) Hypotestosteronism: Comment: Is mostly iatrogenic and NOT age-related Code(s): E34.9 - Endocrine disorder, unspecified Plan: Serum testosterone level was high when last checked several months ago but he has not been able to get his testosterone Rx lately due to insurance requiring a prior authorization; states that he is currently still working on getting his Rx reapproved Will recheck his serum testosterone levels KAREN for follow up Advised again that his testosterone injections are most likely contributing to or causing his polycythemia (5) Primary osteoarthritis of right hip: Comment: S/P total right hip arthroplasty at [facility] on 01/14/2020; S/P physical therapy Code(s): M16.11 - Unilateral primary osteoarthritis, right hip Plan: States that his hip pain has improved?only minimally since his hip surgery Follow-up with Orthopedics as scheduled (6) Lumbar degenerative disc disease: Code(s): M51.36 - Other intervertebral disc degeneration, lumbar region Plan: Reinforced activity and weight lifting restrictions Continue Oxycodone 15 mg every 6 hours as needed, Tizanidine 4 mg twice a day as needed and Ibuprofen 800 mg 3 times a day with food as needed for pain Discussed again that IF he can try to come off his opioid Rx, then he should not need to continue taking his testosterone injection, which is most likely an iatrogenic result of his chronic opioid Rx, and his polycythemia should, at least in theory, start improving gradually, but patient has indicated in the past that he needs his pain med Rx to be able to continue working for a living and he is just not ready to give up his work yet at his current age (7) Primary insomnia: Code(s): F51.01 - Primary insomnia Plan: Sleep hygiene reinforced Continue Trazodone 50 mg 1-2 tablets daily at bedtime as needed (8) Anxiety: Code(s): F41.9 - Anxiety disorder, unspecified Plan: Continue Lorazepam 0.5 mg 1 to 3 times a day as needed Follow-up with Psychiatry as scheduled (9) Obesity (BMI 30-39.9): Code(s): E66.9 - Obesity, unspecified Plan: Reinforced diet/exercise as tolerated/lose weight Plan Follow up in 4 months Orders: Orders Complete Blood Count Auto Diff 03/03/24 D75.1 - Secondary polycythemia TSH reflex Free T4 03/03/24 E78.00 - Pure hypercholesterolemia, unspecified UA CC w/rflx Micro + Cult 03/03/24 R30.0 - Dysuria Testosterone, Free/Total 03/03/24 R79.89 - Other specified abnormal findings of blood chemistry Comprehensive [place]. Panel Fast 4 Months E78.00 - Pure hypercholesterolemia, unspecified Lipid Panel 4 Months E78.00 - Pure hypercholesterolemia, unspecified Comprehensive [place]. Panel Fast 03/03/24 E78.00 - Pure hypercholesterolemia, unspecified Lipid Panel 03/03/24 E78.00 - Pure hypercholesterolemia, unspecified Vitamin D 25-OH Total 03/03/24 E55.9 - Vitamin D deficiency, unspecified Complete Blood Count Auto Diff 4 Months D75.1 - Secondary polycythemia Medications: Refilled atorvastatin 40 mg PO DAILY 90 days 90 tabs 1RF Coding Level of Care Code Est Pt Level 4 (39871) Complex EM visit Add On G2211 Diagnoses Pure hypercholesterolemia E78.00 Polycythemia D75.1 Benign essential hypertension I10 Hypotestosteronism E34.9 Primary osteoarthritis of right hip M16.11 Lumbar degenerative disc disease M51.36 Primary insomnia F51.01 Anxiety F41.9 Obesity (BMI 30-39.9) E66.9
== END 2024-03-03 18:02 | disposition home or self-care (01) ==
PROVIDERS: PCP Internal Medicine; Visit Provider Internal Medicine
DX: E78.00 Pure hypercholesterolemia, unspecified (principal); D75.1 Secondary polycythemia; I10 Essential (primary) hypertension; E34.9 Endocrine disorder, unspecified; M16.11 Unilateral primary osteoarthritis, right hip; M51.36 Other intervertebral disc degeneration, lumbar region; F51.01 Primary insomnia; F41.9 Anxiety disorder, unspecified
CPT/HCPCS: 99214; G2211

== ENCOUNTER 2024-06-10 16:36 | Outpatient (REF) | payer OTHER, SELFPAY ==
[2024-06-10 16:57] LABS: MANUAL DIFF FLAG NO
[2024-06-10 17:16] LABS: Basophils Percent Auto 0.4 % (0-2); Eosinophils Absolute Auto 0.2 X10*3/uL (0.0-0.4); Eosinophils Percent Auto 2.9 % (0-4); Hematocrit 53.1 % (42.0-52.0); Hemoglobin 17.9 g/dl (14.0-18.0); Imm Gran Abs Auto 0.03 X10*3/uL (0.00-0.03); Imm Gran Pct Auto 0.4 % (0.0-0.4); Lymphocytes Absolute Auto 1.5 X10*3/uL (1.2-4.9); Lymphocytes Percent Auto 19.1 % (20-40); Mean Corpuscular HGB Conc 33.7 g/dl (31.0-36.0); Mean Corpuscular Hemoglobin 29.3 pg (27.0-33.0); Mean Corpuscular Volume 86.9 fL (80.0-98.0); Mean Platelet Volume 10.4 fL (9.4-12.4); Monocytes Absolute Auto 0.8 X10*3/uL (0.1-1.2); Neutrophils Absolute Auto 5.4 x10*3/uL (2.0-8.3); Neutrophils Percent Auto 67.2 % (45-73); Platelet Count 219 X10*3/uL (160-400); Red Blood Count 6.11 X10*6/uL (4.60-5.80); Red Cell Distribution Width 13.3 % (11.0-16.0)
[2024-06-10 17:31] LABS: Appearance Urine Turbid; Color Urine Yellow; Glucose Urine UA Negative (Negative); Leukocyte Esterase Urine Negative (Negative); Nitrite Urine Negative (Negative); UMIC TRIGGER UACC YES; Urine Blood Negative (Negative); Urine Ketones 15 mg/dL (Negative); Urine Protein 30 (1+) mg/dL (Neg-Trace)
[2024-06-10 17:41] LABS: Bacteria Urine None Seen (None Seen); Hyaline Casts Urine 0-2 /LPF (0-2); RBC Urine 0-2 /HPF (0-2); Squamous Epithelial Cell Urine 0-2 /HPF (0-2); WBC Urine 0-5 /HPF (0-5)
[2024-06-10 17:58] LABS: Alanine Aminotransferase 38 U/L (0-40); Albumin Level 4.6 g/dL (3.5-5.0); Alkaline Phosphatase 75 U/L (39-117); Anion Gap 14 (12-20); Aspartate Amino Transferase 44 U/L (5-37); Blood Urea Nitrogen 16 mg/dL (9-16); Calcium 9.7 mg/dL (8.4-10.2); Carbon Dioxide 28 mmol/L (22-29); Chloride 108 mmol/L (96-108); Cholesterol 196 mg/dL (<200); Estimated Glomerular Filt Rate > 60; Glucose Fasting 75 mg/dL (60-99); HDL Cholesterol 54 mg/dL (>40); LDL Cholesterol Calculated 129 mg/dL (<100); Potassium 3.7 mmol/L (3.3-5.1); Sodium 146 mmol/L (135-145); Total Protein 7.5 g/dL (6.5-8.0); Triglycerides 68 mg/dL (<150)
[2024-06-10 18:15] LABS: TSH reflex Free T4 1.61 uIU/mL (0.32-4.0); Vitamin D 25-OH Total 47.3 ng/mL (>30)
[2024-06-15 17:04] LABS: Testosterone, Free 193.6 pg/mL (35.0-155.0); Testosterone, Total 1094 ng/dL (250-1100)
== END 2024-06-10 16:37 | disposition home or self-care (01) ==
LOC: HO.LAB 16:36
PROVIDERS: PCP Internal Medicine; Visit Provider Internal Medicine
DX: E78.00 Pure hypercholesterolemia, unspecified (principal); E55.9 Vitamin D deficiency, unspecified; D75.1 Secondary polycythemia; R79.89 Other specified abnormal findings of blood chemistry
CPT/HCPCS: 36415; 80053; 80061; 81001; 82306; 84402; 84403; 84443; 85025

== ENCOUNTER 2024-06-30 17:06 | Outpatient (AMB) | payer OTHER, SELFPAY ==
[2024-06-30 17:13] VITALS: BP 180/102; PULSE 90; O2SAT 95; BMI 29.6
--- NOTE | 2024-06-30 17:13 | MHC.PC.OV ---
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 Accompanied by: Self / Same As Patient Allergies No Known Allergies Allergy (Verified 07/01/24 02:24) Medication List - Last Reconciled 07/01/24 by Enrike Murillo MD [Syringe needle (disposable) 18G x 1 ml As directed] atorvastatin 40 mg PO DAILY 90 days clonidine HCl 0.2 mg PO DAILY 90 days ibuprofen 800 mg PO TID PRN losartan 100 mg PO DAILY 90 days needle (disp) 19 G use for testosterone injections ONCE A WEEK (3 months' supply) oxycodone 15 mg PO Q6H PRN 28 days syringe with needle (BD Luer-Say Syringe) 1 IM every week; testosterone cypionate 100 mg (0.5 mL) IM QWEEK 28 days tizanidine 4 mg PO BID PRN 30 days Tobacco use date assessed: 03/03/24 Dental Screening Dental Screen Date: 03/03/24 HPI hyperlipidemia HPI Details Patient comes in today for his follow-up visit States that he feels okay He denies any headaches or dizziness Denies any chest pains, no increased shortness of breath No nausea/vomiting, no abdominal pain No change in bowel habits noted Needs a few of his Rx refilled He had his follow-up labs done a couple of weeks ago - to discuss his results [facility] Medical History History of obstructive sleep apnea Hypotestosteronism Polycythemia Pure hypercholesterolemia History of Lyme disease Obesity (BMI 30-39.9) Anxiety Primary insomnia Lumbar degenerative disc disease Primary osteoarthritis of right hip Benign essential hypertension Surgical History History of nasal septoplasty History of arthroplasty of right hip Family History Father Pancreatic cancer Mother Brain tumor Social History Housing: Apartment Alcohol intake: never Patient Tobacco Use Status: Never used Tobacco e-Cigarette/Vaping Use: Never Used Second Hand Smoke Exposure: No service: No Current occupational status: employed Current occupational exposures/hazards: No Cognitive needs: No Hearing needs: No Vision needs: No Questionnaire Thrive Questionnaire Date Thrive assessed: 03/03/24 EUNICE-7 AMB Questionnaire EUNICE-7 Date EUNICE - 7 assessed: 03/03/24 Source: Developed by Drs. Gonzalo Riddle, Natali Silva, Jose Angel Quiroga and colleagues, with an educational ernie from [employer]. Review of Systems Const Denies chills, Denies fatigue, Denies fever(s) and Denies headache(s) ENT Denies dysphagia, Denies dizziness, Denies otalgia, Denies headache(s), Denies neck pain, Denies odynophagia and Denies sore throat Card Denies chest pain, Denies irregular heart rhythm, Denies palpitations and Denies dyspnea Resp Denies cough, Denies dyspnea and Denies wheezing GI Denies abdominal pain, Denies constipation, Denies dysphagia, Denies heartburn, Denies diarrhea, Denies nausea, Denies odynophagia and Denies vomiting Denies difficulty urinating, Denies dysuria and Denies urinary frequency Musc Reports back pain (over the lower back), Reports arthralgias (multiple joints, especially over the hips) and Denies neck pain Skin/Breast Denies rash Neuro Denies dizziness, Denies headache(s) and Denies paresthesias Endo Denies fatigue and Denies palpitations Aller/Immun Denies wheezing Physical exam (Primary Care) Vital Signs: Last Vital Signs Pulse 90 06/30/24 17:13 BP 142/98 H 06/30/24 17:26 Pulse Ox 95 06/30/24 17:13 Oxygen Delivery Method Room Air 06/30/24 17:13 BMI result Body Mass Index 29.6 Tobacco/Smoking Status: Tobacco use Status Tobacco use date assessed 03/03/24 06/30/24 17:15 Patient Tobacco Use Status Never used Tobacco 06/30/24 17:15 e-Cigarette/Vaping Use Never Used 06/30/24 17:15 Thrive Assessment: Date of Thrive Assessment Date Thrive assessed 03/03/24 06/30/24 17:15 Const General: no acute distress and alert HENMT Ears: TM's normal bilaterally and EAC's normal Throat: Yes posterior oropharynx normal and Yes tonsils normal (no TP congestion) Neck Neck: Yes no lymphadenopathy and Yes supple Thyroid: Thyroid normal Resp Auscultation: clear to auscultation bilaterally, no rales and no wheezes Cardio Rate: regular rate Rhythm: regular rhythm Heart sounds: no murmurs GI Palpation (GI): Soft to palpation and nontender Auscultation: normal bowel sounds General: Yes no CVA tenderness Back/Spine/Pelvis Back: no CVA tenderness Thoracic/Lumbar Spine: lumbar spinal tenderness Skin Rashes: no rashes Extrem General: Yes no clubbing, cyanosis or edema Office Procedures Flu Questionnaire Does the patient have a severe egg allergy?: No Immunizations Fluarix Triv 9825-1126 (PF) 45 mcg (15 mcg x 3)/0.5 mL IM syringe Performing Provider: Enrike Murillo MD [facility] [place] [place] [facility] Documented (not given) by: HYACINTH Mejia on 06/30/24 17:16 Reason Not Given: Patient Refused Results Reviewed Results Reviewed: Laboratory Tests 06/10/24 06/10/24 16:50 16:56 WBC 8.0 Hgb 17.9 Hct 53.1 H Plt Count 219 Sodium 146 H Potassium 3.7 Creatinine 1.18 Estimated GFR > 60 Fasting Glucose 75 Calcium 9.7 AST 44 H ALT 38 Triglycerides 68 Cholesterol 196 LDL Cholesterol, Calc 129 H HDL Cholesterol 54 25-OH Vitamin D Total 47.3 TSH 1.61 Total Testosterone 1094 Fr Testosterone Dialys 193.6 H Ur Specific Haskell 1.020 Urine Protein 30 (1+) H Urine Glucose (UA) Negative Urine Blood Negative Urine Nitrite Negative Ur Leukocyte Esterase Negative Coding Level of Care Code Est Pt Level 4 (02403) Complex EM visit Add On G2211 Diagnoses Pure hypercholesterolemia E78.00 Benign essential hypertension I10 Polycythemia D75.1 Hypotestosteronism E34.9 Primary osteoarthritis of right hip M16.11 Degeneration of intervertebral disc of lumbar region with discogenic back pain M51.360 Disc-related pain type: discogenic back pain only Primary insomnia F51.01 Anxiety F41.9 Obesity (BMI 30-39.9) E66.9 Assessment & Plan Assessment & Plan (1) Pure hypercholesterolemia: Code(s): E78.00 - Pure hypercholesterolemia, unspecified Category: Medical Plan: Results of his labs done a couple of weeks ago reviewed and discussed with patient - his total and LDL cholesterol levels have improved slightly from previous Reinforced low-cholesterol diet - patient states that he used to drink a lot of regular milk but has cut back a lot on this lately Continue Atorvastatin 40 mg QD - patient is hoping to come off of this or at least come down on his dose sometime in the future if his cholesterol numbers continue to improve Will recheck his labs and fasting lipids in 4 months for follow up (2) Benign essential hypertension: Code(s): I10 - Essential (primary) hypertension Category: Medical Plan: Reinforced low-sodium diet - goal is systolic BP of at least 120 to 130 mm or less Patient states that his blood pressure readings have been consistently much lower when he checks his blood pressure at home and they have also improved a lot when he previously lost weight Continue Losartan 50 mg 1 and 1/2 tablets (75 mg) QD; he is also on Clonidine 0.2 mg QD - he takes this mostly for his anxiety but it is also helping with his blood pressure as it is an antihypertensive Have advised again that his blood pressure may improve with the reduction in dose of his testosterone injections as well as his continued phlebotomy Patient is reminded to continue monitoring his blood pressure regularly/closely (3) Polycythemia: Code(s): D75.1 - Secondary polycythemia Category: Medical Plan: His hemoglobin is normal at 17.9 and his hematocrit is also almost normal now at 53.1 on his recent labs Patient states that he was going for phlebotomy every few weeks for a while but has not done so lately He was following up with hematology (Dr. Anderson) at [facility] regularly before but he has also not been back to see Dr. Anderson in a while now - was last seen sometime in 2021 He is advised to reach out to Dr. Anderson's office to schedule his follow-up appointment with him sometime in the next few months We will continue to monitor his CBC regularly (4) Hypotestosteronism: Comment: Is mostly iatrogenic and NOT age-related Code(s): E34.9 - Endocrine disorder, unspecified Category: Medical Plan: Patient is advised that his total testosterone level is normal but his free testosterone level remains very high at 193.6 pg/mL He is currently still getting his testosterone injection 100 mg once a week Have advised patient that he really needs to see Urology for follow-up and have cautioned him that high testosterone level can increase his risk of developing prostate cancer in the near future so he should see Urology for further recommendations and to have them help address his current high testosterone level At the very least, have advised him to try cutting back on his testosterone injections to every other week or once a month until he is seen by urology Will recheck his serum testosterone low in a few months for follow-up (5) Primary osteoarthritis of right hip: Comment: S/P total right hip arthroplasty at [facility] on 01/14/2020; S/P physical therapy Code(s): M16.11 - Unilateral primary osteoarthritis, right hip Category: Medical Plan: Patient states that his right hip pain has improved?only minimally with his hip surgery Follow-up with Orthopedics as scheduled (6) Lumbar degenerative disc disease: Code(s): M51.36 - Other intervertebral disc degeneration, lumbar region Category: Medical Qualifiers: Disc-related pain type: discogenic back pain only Qualified Code(s): M51.360 - Other intervertebral disc degeneration, lumbar region with discogenic back pain only Plan: Reinforced activity and weight lifting restrictions Continue Oxycodone 15 mg every 6 hours as needed, Tizanidine 4 mg twice a day as needed and Ibuprofen 800 mg 3 times a day with food as needed for pain Discussed again that IF he can try to come off his opioid Rx, then he should not need to continue taking his testosterone injection, which is most likely an iatrogenic result of his chronic opioid Rx His polycythemia may also start improving gradually but patient has indicated in the past that he needs his pain med Rx to be able to continue working for a living and he is just not ready to give up his work yet at his current age (7) Primary insomnia: Code(s): F51.01 - Primary insomnia Category: Medical Plan: Sleep hygiene reinforced Continue Trazodone 50 mg 1-2 tablets daily at bedtime as needed (8) Anxiety: Code(s): F41.9 - Anxiety disorder, unspecified Category: Medical Plan: Continue Lorazepam 0.5 mg 1 to 3 times a day as needed and Clonidine 0.2 mg QD Follow-up with Psychiatry as scheduled (9) Obesity (BMI 30-39.9): Code(s): E66.9 - Obesity, unspecified Category: Medical Plan: Reinforced diet/exercise as tolerated/lose weight Plan Follow-up in 4 months Orders: Orders Comprehensive [place]. Panel Fast 4 Months E78.00 - Pure hypercholesterolemia, unspecified UA CC w/rflx Micro + Cult 4 Months R30.0 - Dysuria Influenza [id number] Immunization 06/30/24 Z23 - Encounter for immunization Complete Blood Count Auto Diff 4 Months D64.9 - Anemia, unspecified TSH reflex Free T4 4 Months E78.00 - Pure hypercholesterolemia, unspecified Vitamin D 25-OH Total 4 Months E55.9 - Vitamin D deficiency, unspecified Testosterone, Free/Total 4 Months R79.89 - Other specified abnormal findings of blood chemistry Medications: Refilled losartan 100 mg PO DAILY 90 days 90 tabs 1RF I10 - Essential (primary) hypertension clonidine HCl 0.2 mg PO DAILY 90 days 90 tabs 1RF losartan 100 mg PO DAILY 90 days 90 tabs 1RF I10 - Essential (primary) hypertension clonidine HCl 0.2 mg PO DAILY 90 days 90 tabs 1RF atorvastatin 40 mg PO DAILY 90 days 90 tabs 1RF
[2024-06-30 17:26] VITALS: BP 142/98
== END 2024-06-30 17:31 | disposition home or self-care (01) ==
PROVIDERS: PCP Internal Medicine; Visit Provider Internal Medicine
DX: E78.00 Pure hypercholesterolemia, unspecified (principal); I10 Essential (primary) hypertension; E66.9 Obesity, unspecified; Z68.29 Body mass index [BMI] 29.0-29.9, adult; D75.1 Secondary polycythemia; E34.9 Endocrine disorder, unspecified; M16.11 Unilateral primary osteoarthritis, right hip; M51.360 Other intervertebral disc degeneration, lumbar region with discogenic back pain only; F51.01 Primary insomnia; F41.9 Anxiety disorder, unspecified

== ENCOUNTER → 2024-06-30 17:06 | Outpatient (BNVA) | payer OTHER, SELFPAY | PROVIDERS: PCP Internal Medicine; Visit Provider Internal Medicine | DX: E78.00 Pure hypercholesterolemia, unspecified (principal); I10 Essential (primary) hypertension; D75.1 Secondary polycythemia; E34.9 Endocrine disorder, unspecified; M51.360 Other intervertebral disc degeneration, lumbar region with discogenic back pain only; F51.01 Primary insomnia; F41.9 Anxiety disorder, unspecified; E66.9 Obesity, unspecified; Z68.29 Body mass index [BMI] 29.0-29.9, adult; Z79.891 Long term (current) use of opiate analgesic; Z79.899 Other long term (current) drug therapy; Z96.641 Presence of right artificial hip joint; Z28.21 Immunization not carried out because of patient refusal | CPT/HCPCS: 90471 ==

== ENCOUNTER 2024-09-30 17:25 | Outpatient (AMB) | payer OTHER, SELFPAY ==
[2024-09-30 17:27] VITALS: BP 132/86; PULSE 106; O2SAT 96; BMI 29.7
--- NOTE | 2024-09-30 17:27 | MHC.PC.OV ---
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 Accompanied by: Self / Same As Patient Allergies No Known Allergies Allergy (Verified 09/30/24 17:41) Medication List - Last Reconciled 09/30/24 by Enrike Murillo MD [Syringe needle (disposable) 18G x 1 ml As directed] atorvastatin 40 mg PO DAILY 90 days clonidine HCl 0.2 mg PO DAILY 90 days ibuprofen 800 mg PO TID PRN losartan 100 mg PO DAILY 90 days needle (disp) 19 G use for testosterone injections ONCE A WEEK (3 months' supply) oxycodone 15 mg PO Q6H PRN 6 days oxycodone 15 mg PO Q6H PRN 28 days syringe with needle (BD Luer-Say Syringe) 1 IM every week; testosterone cypionate 100 mg (0.5 mL) IM QWEEK 28 days tizanidine 4 mg PO BID PRN 30 days Tobacco use date assessed: 09/30/24 Dental Screening Dental Screen Date: 09/30/24 Did you have a dental visit in the last 12 months?: No Did you have a dental problem in the last 6 months where you did not have access to dental care?: No Was dental information given to patient?: Patient has dentist HPI Pe and med review HPI Details Patient comes in today for his annual physical examination States that he currently feels okay He denies any headaches or dizziness Denies any chest pains, no increased shortness of breath No nausea / vomiting, no abdominal pain No change in bowel habits noted He denies any acute urinary symptoms He was not able to get his follow up labs done prior to his appointment today He was referred for a screening colonoscopy back in 2013 but it is unclear if he ever had one done back then Patient recalls getting a colonoscopy done somewhere in [place] about 6 years ago or so but we have not been able to locate any records regarding this FOR[facility]LY [facility] Medical History History of obstructive sleep apnea Hypotestosteronism Polycythemia Pure hypercholesterolemia History of Lyme disease Obesity (BMI 30-39.9) Anxiety Primary insomnia Lumbar degenerative disc disease Primary osteoarthritis of right hip Benign essential hypertension Surgical History History of nasal septoplasty History of arthroplasty of right hip Family History Father Pancreatic cancer Mother Brain tumor Social History Housing: Apartment Alcohol intake: never Patient Tobacco Use Status: Never used Tobacco e-Cigarette/Vaping Use: Never Used Second Hand Smoke Exposure: No service: No Current occupational status: employed Current occupational exposures/hazards: No Cognitive needs: No Hearing needs: No Vision needs: No Questionnaire PHQ-9 Over the last 2 weeks, how often have you been bothered by any of the following problems? 1. Little interest or pleasure in doing things: not at all 2. Feeling down, depressed, or hopeless: not at all 3. Trouble falling or staying asleep, or sleeping too much: not at all 4. Feeling tired or having little energy: not at all 5. Poor appetite or overeating: not at all 6. Feeling bad about yourself - or that you are a failure or have let yourself or your family down: not at all 7. Trouble concentrating on things, such as reading the newspaper or watching television: not at all 8. Moving or speaking so slowly that other people could have noticed. Or the opposite - being so fidgety or restless that you have been moving around a lot more than usual: not at all 9. Thoughts that you would be better off or of hurting yourself in some way: not at all Total score: 0 Depression Screening Interpretation: Negative Depression Screening Done: Yes 75365 - PHQ-9 Billing: Yes Source: Developed by Drs. Gonzalo Riddle, Natali Silva, Jose Angel Quiroga and colleagues, with an educational ernie from [employer]. Thrive Questionnaire Date Thrive assessed: 09/30/24 I am a: Patient What is your living situation today?: I have a steady place to live Within the past 12 months, did the food you bought not last and you didn't have the money to get more?: Never true Within the past 12 months, did you worry whether your food would run out before you got money to buy more?: Never true Do you have trouble paying for medicines?: No Do you have trouble getting transportation to medical appointments?: No Do you have trouble paying your heating and electricity bill?: No Do you have trouble taking care of your child, family member or friend?: No Do you have trouble with day-to-day activities such as bathing, preparing meals, shopping, managing finances, etc.?: No Are you currently unemployed and looking for a job?: No Are you interested in more education?: No Please select the resources that you would like help with: None Currently or been in a relationship where the following occur: No concerns reported THRIVE Score: 0 AUDIT C Alcohol Use Questionnaire (AUDIT-C) 1. How often do you have a drink containing alcohol?: Never 3. How often do you have six or more drinks on one occasion?: Never Total Score: 0 Score Reviewed/Action Taken: Yes EUNICE-7 AMB Questionnaire EUNICE-7 Date EUNICE - 7 assessed: 09/30/24 Feeling nervous, anxious, or on edge: 0 = Not at all Not being able to stop or control worryin = Not at all Worrying too much about different things: 0 = Not at all Trouble relaxin = Not at all Being so restless that it is hard to sit still: 0 = Not at all Becoming easily annoyed or irritable: 0 = Not at all Feeling afraid as if something awful might happen: 0 = Not at all Total EUNICE-7 score (0-4 normal; 5-9 mild; 10-14 moderate; 15-21 severe): 0 Source: Developed by Drs. Gonzalo Riddle, Natali Silva, Jose Angel Quiroga and colleagues, with an educational ernie from [employer]. Review of Systems Const Denies chills, Denies fatigue, Denies fever(s), Denies headache(s), Denies malaise and Denies weakness Eyes Denies blurry vision, Denies change in vision, Denies irritation and Denies itchy eyes ENT Denies dysphagia, Denies dizziness, Denies otalgia, Denies headache(s), Denies nasal congestion, Denies neck pain, Denies odynophagia and Denies sore throat Card Denies chest pain, Denies rapid heart rate, Denies irregular heart rhythm, Denies palpitations and Denies dyspnea Resp Denies chest congestion, Denies cough, Denies dyspnea and Denies wheezing GI Denies abdominal pain, Denies bloating, Denies constipation, Denies dysphagia, Denies heartburn, Denies diarrhea, Denies nausea, Denies odynophagia and Denies vomiting Denies hematuria, Denies difficulty urinating, Denies dysuria, Denies urinary frequency and Denies urinary urgency Musc Reports back pain (over the lower back - chronic), Reports arthralgias (over multiple joints, especially in the hips) and Denies neck pain Skin/Breast Denies change in pigmentation, Denies lesions, Denies rash and Denies unusual bruising Neuro Denies dizziness, Denies headache(s), Denies paresthesias and Denies weakness Endo Denies fatigue and Denies palpitations Aller/Immun Denies itchy eyes and Denies wheezing Physical exam (Primary Care) Vital Signs: Last Vital Signs Pulse 106 H 09/30/24 17:27 BP 132/86 09/30/24 17:27 Pulse Ox 96 09/30/24 17:27 Oxygen Delivery Method Room Air 09/30/24 17:27 BMI result Body Mass Index 29.7 Tobacco/Smoking Status: Tobacco use Status Tobacco use date assessed 09/30/24 09/30/24 17:32 Patient Tobacco Use Status Never used Tobacco 09/30/24 17:32 e-Cigarette/Vaping Use Never Used 09/30/24 17:32 PHQ-9: PHQ-9 Score PHQ-9: Total score 0 09/30/24 22:20 Depression Screening Interpretation: Negative Thrive Assessment: Date of Thrive Assessment Date Thrive assessed 09/30/24 09/30/24 17:32 Currently or been in a relationship where the following occur: No concerns reported Const General: no acute distress, alert and awake Orientation/consciousness: patient oriented x3 HENMT Head: Yes normocephalic and Yes atraumatic Ears: external ears normal, TM's normal bilaterally and EAC's normal General nose exam: No nasal discharge present Face and sinus: Yes normal facial exam and Yes sinuses nontender Teeth and gingiva: dentition normal Throat: Yes posterior oropharynx normal and Yes tonsils normal (no TP congestion) Eyes Eyelids: Yes eyelids normal Conjunctivae: conjunctivae normal Pupils: Equal, round and reactive pupils present EOM: EOMs intact bilaterally Neck Neck: Yes no lymphadenopathy and Yes supple Thyroid: Thyroid normal Resp Auscultation: clear to auscultation bilaterally, no rales and no wheezes Cardio Rate: regular rate Rhythm: regular rhythm Heart sounds: no murmurs GI Palpation (GI): Soft to palpation, nontender and No hepatosplenomegaly present Auscultation: normal bowel sounds General: Yes no CVA tenderness Back/Spine/Pelvis Back: no CVA tenderness Thoracic/Lumbar Spine: lumbar spinal tenderness Skin Lesions: no lesions Rashes: no rashes Neuro General: patient oriented x3, moves all extremities, no focal motor deficits and CN's II-XI intact bilaterally Cranial nerves: Yes Equal, round and reactive pupils present Cognition (Neuro): normal cognition Gait exam (Neuro): Normal gait present Extrem General: Yes no clubbing, cyanosis or edema Right lower extremity: hip/thigh Details: tenderness Location: of the hip Left lower extremity: hip/thigh Details: tenderness Location: of the hip Coding Level of Care Code Est Pt Prev Care 40-64y(00948) Diagnoses Annual physical exam Z00.00 Pure hypercholesterolemia E78.00 Benign essential hypertension I10 Polycythemia D75.1 Hypotestosteronism E34.9 Primary osteoarthritis of right hip M16.11 Degeneration of intervertebral disc of lumbar region with discogenic back pain M51.360 Disc-related pain type: discogenic back pain only Primary insomnia F51.01 Anxiety F41.9 Obesity (BMI 30-39.9) E66.9 Additional Codes PHQ-9 - 75877 - PHQ-9 Billing: Yes ([id number]) Assessment & Plan Assessment & Plan (1) Annual physical exam: Code(s): Z00.00 - Encounter for general adult medical examination without abnormal findings Category: Medical Plan: Patient was supposed to have some labs done but he was not able to get them done prior to his appointment today He was referred for a screening colonoscopy back in 2013 but it is unclear if he ever had one done back then Patient recalls getting a colonoscopy done somewhere in [place] about 6 years ago or so but we have not been able to locate any records regarding this so far Advised patient that if we still can not get any information regarding any past or recent colonoscopies over the next few months, then we will likely just have to go ahead and refer him for one at his next follow-up appointment in a few months (2) Pure hypercholesterolemia: Code(s): E78.00 - Pure hypercholesterolemia, unspecified Category: Medical Plan: Have reminded him that although his cholesterol levels have improved previous when they were last checked back in May 2024, his numbers still need to be lower - his total cholesterol was still at 196 mg/dL and LDL cholesterol was still at 129 mg/dL Reinforced low-cholesterol diet - patient states that he used to drink a lot of regular milk but has cut back a lot on this over the past year Continue Atorvastatin 40 mg QD - patient is again hoping to come off of this or at least come down on his dose sometime in the future if his cholesterol numbers continue to improve Will recheck his labs and fasting lipids in 4 months for follow up - will just have patient use his current orders (updated) for his next lab draw (3) Benign essential hypertension: Code(s): I10 - Essential (primary) hypertension Category: Medical Plan: Reinforced low-sodium diet - goal is systolic BP of at least 120 to 130 mm or less Patient states that his blood pressure readings have been consistently much lower when he checks his blood pressure at home and they have also improved a lot when he previously lost weight Continue Losartan 50 mg 1 and 1/2 tablets (75 mg) QD; he is also on Clonidine 0.2 mg QD - he takes this mostly for his anxiety but it also helps with his blood pressure as it is an antihypertensive Have advised patient again that his blood pressure may improve with the reduction in dose of his testosterone injections as well as his continued phlebotomy Patient is reminded to continue monitoring his blood pressure regularly/closely (4) Polycythemia: Code(s): D75.1 - Secondary polycythemia Category: Medical Plan: His hemoglobin was normal at 17.9 and his hematocrit was also almost normal at 53.1 when he last had his labs done back in May 2024 Patient was going for phlebotomy every few weeks for a while but states that he has not needed to do so lately He was following up with hematology (Dr. Anderson) at [facility] regularly before but he has also not been back to see Dr. Anderson in a while now - was last seen sometime in 2021 He has been advised to reach out to Dr. Anderson's office to schedule his follow-up appointment with him sometime soon We will continue to monitor his CBC regularly (5) Hypotestosteronism: Comment: Is mostly iatrogenic and NOT age-related Code(s): E34.9 - Endocrine disorder, unspecified Category: Medical Plan: Patient is advised that his total testosterone level is normal but his free testosterone level remains very high at 193.6 pg/mL when they were last checked in May 2024 He was getting his testosterone injection 100 mg once a week Have cautioned patient again that high testosterone levels can increase his risk of developing prostate cancer in the future He was getting his testosterone injections from endocrinology at [facility] in the past but states that 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 and he will 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 - will refer him to [facility] Endocrinology Will recheck his serum testosterone level in a few months for follow-up (6) Primary osteoarthritis of right hip: Comment: S/P total right hip arthroplasty at [facility] on 01/14/2020; S/P physical therapy Code(s): M16.11 - Unilateral primary osteoarthritis, right hip Category: Medical Plan: Patient states that his right hip pain has improved?only minimally with his hip surgery States that his current medications help keep his pain manageable Follow-up with Orthopedics as scheduled (7) Lumbar degenerative disc disease: Code(s): M51.36 - Other intervertebral disc degeneration, lumbar region Category: Medical Qualifiers: Disc-related pain type: discogenic back pain only Qualified Code(s): M51.360 - Other intervertebral disc degeneration, lumbar region with discogenic back pain only Plan: Reinforced activity and weight lifting restrictions Continue Oxycodone 15 mg every 6 hours as needed, Tizanidine 4 mg twice a day as needed and Ibuprofen 800 mg 3 times a day with food as needed for pain Discussed again that IF he can try to come off his opioid Rx, then he should not need to continue taking his testosterone injections, as his low testosterone level is most likely an iatrogenic result of his chronic opioid Rx His polycythemia may also improve but patient insists that he needs his pain medication to be able to continue working for a living and he is just not ready to give up his work yet at his present age (8) Primary insomnia: Code(s): F51.01 - Primary insomnia Category: Medical Plan: Sleep hygiene reinforced Continue Trazodone 50 mg 1-2 tablets daily at bedtime as needed (9) Anxiety: Code(s): F41.9 - Anxiety disorder, unspecified Category: Medical Plan: Continue Lorazepam 0.5 mg 1 to 3 times a day as needed and Clonidine 0.2 mg QD Follow-up with Psychiatry as scheduled (10) Obesity (BMI 30-39.9): Code(s): E66.9 - Obesity, unspecified Category: Medical Plan: Reinforced diet/exercise as tolerated/lose weight Plan Follow-up in 4 months Orders: Orders Prostate Specific Antigen 02/07/25 N40.0 - Benign prostatic hyperplasia without lower urinary tract symptoms Lipid Panel 02/07/25 E78.00 - Pure hypercholesterolemia, unspecified Referrals Endocrinology Referral E34.9 - Endocrine disorder, unspecified
--- OUTSIDE RECORDS SUMMARY | 2024-09-30 17:27 | XMS_ITS | Patient Health Record ---
Author Organization [facility] lesa Putnam Address [address] [place] [address] Care Team Providers Care Table Maker Name Role Phone Chidi AVILA [place] Primary Care Provider UnaLisseth Simental Unavailable [phone] Allergies No Known Allergies Reason For Referral No Information Medications Medication SIG (Take, Route, Frequency, Duration) Notes Start Date End Date Status oxyCODONE HCl 15 MG 1 tablet as needed O rally every 6 hrs Active Testosterone Active Losartan Potassium 100 MG 1 tablet Orally Once a day Active cloNIDine 0.2 MG/24HR 1 patch to skin Transdermal Active Social History Tobacco Use: Social History Observation Description Date Details (start date - stop date) Never Smoker NA - NA Tobacco Use/Smoking Question Answer Notes Are you a: nonsmoker Additional Findings: Tobacco Non-User Current no n-smoker Alcohol Screen Question Answer Notes Did you have a drink containing alcohol in the p ast year? No Points 0 Interpretation Negative Tobacco use other than smoking: Question Answer Notes Are you an other tobacco user? No Problems Problem Type SNOMED Code ICD Code Onset Dates Problem Status W/U Status Risk Notes Problem Osteoarthritis of midtarsal joint of left foot ([id number] ) Osteoarthritis of midtarsal joint of left foot (M19.072) Active confirmed Vital Signs Height 6 ft in 01/28/2024 Weight 210 lbs 01/28/2024 BMI 28.48 kg/m2 01/28/2024 Encounters Encounter Location Date Provider Diagnosis [facility] [place] [address] 01/28/2024 Lisseth Saenz Pain in left foot M79.672 ; Osteoarthritis of midtarsal joint of left foot M19.072 ; Pain in left ankle and joints of left foot M25.572 ; Bursitis of left foot M77.52 ; Pain in right foot M79.671 ; Pain in right ankle and joints of right foot M25.571 ; Bursitis of right foot M77.51 and Tailor's bunion of right foot M21.621 [facility] [address] [address] 01/28/2024 Lisseth Saenz [facility] [address] 11/15/2023 Lisseth Saenz Assessments Encounter Date Diagnosis (ICD Code) Assessment Notes Treatment Notes Treatment Clinical Notes Section Notes 01/28/2024 Pain in left foot (ICD-10 - M79.672) 01/28/2024 Osteoarthritis of midtarsal joint of left foot (ICD-10 - M19.072) 01/28/2024 Pain in left ankle and joints of left foot (ICD-10 - M25.572) 01/28/2024 Bursitis of left foot (ICD-10 - M77.52) 01/28/2024 Pain in right foot (ICD-10 - M79.671) 01/28/2024 Pain in right ankle and joints of right foot (ICD-10 - M25.571) 01/28/2024 Bursitis of right foot (ICD-10 - M77.51) 01/28/2024 Tailor's bunion of right foot (ICD-10 - M21.621) Plan Of Treatment Pending Test Test Name Order Date X ray : Foot, left 3V 01/28/2024 X ray : Foot, right 3V 01/28/2024 Insurance Providers Payer Name Payer Address Payer Phone Subscriber Number Group Number Insured Name Patient Relationship to Insured Coverage Start Date Coverage End Date Aetsong Iraheta [id number] SHAD Shaikh [phone] [id number] Segundo Kebede Spouse - patient is the spouse of the insured Medical (General) History Medical History History ICD Code High blood pressure Lyme disease Chicken pox Joint implants/screws Surgical History Surgery Date(Month/Year) hip replacement
--- OUTSIDE RECORDS SUMMARY | 2024-09-30 17:27 | XMS_ITS | Data Portability ---
Author Organization [facility], PAIN OFFICE Address [address],[facility] [address] [place] [address] Care Team Providers Care Rough Planer Tender Name Role Phone NAHUM SINGH Primary Care Provider [phone] Assessment Encounter Date Assessment Date Assessment LastModified by Organization Details LastModified Time 10/09/2019 10/09/2019 Fabio Kebede is a 54 year old man with right hip pain . On exam, he has a positive Thiago's test and limited range of motion of the left hip. X-ray of right hip shows osteoarthritis . I recommend a Right hip steroid injection under fluoroscopic guidance.The risks and benefits of the procedure were discussed and he wishes to proceed . An appointment has been made. He needs a cdl a driver on the day of the procedure. [email or web address] Not available 10/20/2019 16:47:48 Plan of Treatment Reminders Order Date Submit Date Provider Last Modified By Organization Details Last Modified Time Details Appointments None record ed. Lab None record ed. Referral None record ed. Procedures None record ed. Surgeries None record ed. Imaging None record ed. Medication Orders None record ed. Patient TargetsNo targets recorded. Patient Instructions Encounter Date Encounter Id Patient Instructions Last Modified By Organization Details Last Modified Time 10/09/2019 [id number] He was advised against bed rest lasting longer than four days and to continue activities as tolerated. [email or web address] Not available 10/20/2019 16:47:57 Reason for Referral None Reported. Problems Name Problem SNOMED Code Status Onset Date Resolution Date Notes Provider Name and Address Organization Details Recorded Time Arthritis of right hip 81850340427033 01 Active Brenda butler [facility] 0 15:23:58 Problem Notes None recorded. Medical Equipment None Reported. Allergies No known drug allergies Medications Name Sig Start Date Stop Date Status Note LastModified by Organization Details LastModified Time losartan 50 mg tablet TK 1 T PO QD active Not Available Not Available No t Available cyclobenzap rine 10 mg tablet active Not Available Not Available Not Available atorvastati n 10 mg tablet TK 1 T PO QD active Not Available Not Available No t Available azithromyci n 250 mg tablet 10/09 completed Not Available Not Available Not Available ibuprofen 800 mg tablet active Not Available Not Available Not Available tizanidine 4 mg tablet TK 1 T PO BID PRN active Not Available Not Available No t Available oxycodone 15 mg tablet active Not Available Not Available Not Available clonidine HCl 0.2 mg tablet TK 1 T PO BID active Not Available Not Available No t Available BD Luer-Say Syringe 3 mL 25 gauge x 1 active Not Available Not Available Not Available testosteron e cypionate 200 mg/mL intramuscul ar oil INJ 0.4ML ONCE A WEEK active Not Available Not Available No t Available BD SafetyGlide Syringe 3 mL 23 x 1 USE DIRECTED ONCE A WEEK IM active Not Available Not Available No t Available BD Regular Bevel [place] 19 gauge x 1 USE TO INJECT TESTOSTER ONE Q WEEK active Not Available Not Available No t Available BD PrecisionGl juan 25 gauge x 1 needle U Q WEEK active Not Available Not Available Not Available Vitals Date Recorded Body height Body mass index (BMI) Body weight Heart rate Oxygen saturation Oxygen saturation in Arterial blood by Pulse oximetry Systolic blood pressure Diastolic blood pressure Systolic blood pressure Diastolic blood pressure Provider Name and Address Organization Details Last Updated DateTime 0 182.88 cm 29.4 kg/m2 82093.5 4 g 90 /min 95 % 95 % 195 mm[Hg] 106 mm[Hg] 179 mm[Hg] 99 mm[Hg] Brenda Rojas [facility] - [facility] 0 15:46:58 Social History None recorded. Functional Status None recorded. Mental Status None recorded. Family History Nothing Reported Notes:Both parents from Cancer (dad pancreatic and glyoblastoma Medical History Condition Response Coronary Artery Disease N Gout N Neuropathy/Neuralgia N Kidney Stones N Hyperthyroidism N Hypothyroidism N Depression N COPD N Anxiety Disorder N Arthritis Y Cancer N Stroke N HIV/AIDS N Headache N High Cholesterol Y Liver Disease N Fibromyalgia N Irritable Bowel Syndrome N Kidney Disease N Hepatitis C N Migrane N Diabetes N Seizures/Epilepsy N Hyperlipidemia N Asthma N Bipolar Disorder N GERD/Reflux N Pulmonary Embolism N Hypertension Y Osteoporosis N Past Encounters Encounter ID Performer Location Encounter Start Date Encounter Closed Date Diagnosis/Indication Diagnosis SNOMED-CT Code Diagnosis ICD10 Code Diagnosis Note [id number] Michael Curry MD PAIN OFFICE [address],[facility] [address] [place] [address] 10/09/2019 14:46:57 10/20/2019 16:53:24 Arthritis of right hip [id number] M13.851 Health Concerns Section Related Observation LastModified by Organization Detai ls LastModified Time None Recorded Concern Status LastModified by Organization Details LastModified Time None Recorded Advance Directives Directive None Recorded Payers Encounter Date Sequence Insurance Name Policy Number Policy Nieto Covered Member ID Nieto Member ID Guarantor Name 10/09/2019 1 [employer] (POS) Fabio Kebede [id number] Fabio Kebede Notes Date Note Type Note Provider Name and Address Organization Details Recorded Time 10/09/2019 text/html Fabio Kebede is a 54 year old man with complaints of pain in his right hip region. 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 He has been having pain since. Current pain level is 9/10. Pain is aggravated by walking . Pain is relieved by rest. Pain interferes with sleep. He describes the pain as a shrap stabbing pain which is at times throbbing and aching in nature. He has no history of bladder or bowel incontinence.He has had a course of physical therapy with some pain benefit.He has had injections done by Dr. Alaniz which s helped. He feels the last injection did not help.MRI Pelvis shows severe right hip osteoarthritis . End plate edema on the left at L5-S1 . Mild left hip osteoarthritis. Michael Curry MD [address] [facility] , [address], [place], [address], [facility] 10/23/2019 09:58:36
--- OUTSIDE RECORDS SUMMARY | 2024-09-30 17:28 | XMS_ITS | Clinical Summary ---
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 Role Phone Unavailable Primary Care Provider Unavailabl e Social History Tobacco Use Types Packs/Day Years Used Date Smoking Tobacco: Never Assessed Sex and Gender Information Value Date Recorded Sex Assigned at Not on file Legal Sex Male 4:55 AM EDT Gender Identity Not on file Sexual Orientation Not on file Plan of Treatment Health Maintenance Due Date Last Done Comments DTaP,Tdap,and Td Vaccines (1 - Tdap) 1983 Pneumococcal Vaccine: 50+ Ye ars (1 of 1 - PCV) 2014 Zoster Vaccines (1 of 2) 2014 Cholesterol Screening (Lipid Panel) 09/27/2022 Colorectal Cancer Screening: Colonoscopy 09/27/2022 Depression Screening 09/27/2022 HIV Screening 09/27/2022 Hepatitis C Screening 09/27/2022 Social Influencers of Health Screening 09/27/2022 Hypertension/CHF/CAD Annual BMP Blood Test 09/15/2023 COVID-19 Vaccine (1 - 2023-2 5 season) 2024 Influenza Vaccine (#1) 2024 RSV Immunization Patients 60 + Years Old (1 - 1-dose 75+ series) 2039 HIB Vaccines Aged Out No longer eligi ble based on patient's age to complete this topic HPV Vaccines Aged Out No longer eligi ble based on patient's age to complete this topic Hepatitis A Vaccines Aged Out No long er eligible based on patient's age to complete this topic Hepatitis B Vaccines Aged Out No long er eligible based on patient's age to complete this topic IPV Vaccines Aged Out No longer eligi ble based on patient's age to complete this topic MMR Vaccines Aged Out No longer eligi ble based on patient's age to complete this topic Meningococcal ACWY Vaccine Aged Out N o longer eligible based on patient's age to complete this topic Meningococcal B Vacine Aged Out No lo nger eligible based on patient's age to complete this topic Pneumococcal Vaccine: Pediat rics (0 to 5 Years) and At-Risk Patients (6 to 64 Years) Aged Out No longer eligible b ased on patient's age to complete this topic RSV Immunization Patients Un ana luisa 20 months Aged Out No longer eligible b ased on patient's age to complete this topic Varicella Vaccines Aged Out No longer eligible based on patient's age to complete this topic
--- OUTSIDE RECORDS SUMMARY | 2024-09-30 17:28 | XMS_ITS ---
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 No Vital Signs Height 6 ft in 11/15/2023 Weight 210 lbs 11/15/2023 BMI 28.48 kg/m2 11/15/2023 Encounters Encounter Location Date Provider Diagnosis [address] [place] [address] 11/15/2023 Lisseth Saenz Plan Of Treatment No Information Progress Notes * Fabio CASSIDYDOB:1965 ( 59 yo M)Acc No.[id number]:11/15/2023 Progress Notes Patient:?Fabio CASSIDY Provider:?Lisseth Saenz DPM :1965???Age:58 Y???Sex:Male Chaitanya e:11/15/2023 Address[address], [place] Pcp:Enrike Murillo MD Subjective: * Chief Complaints: * ???1. Snow. * ROS:?General/Constitutional:?Nausea?denies.?Vomiting?denies.?Hunger Thirst?denies.?Loss appetite?denies.?Chills?denies.?Fatigue?denies.?Fever?denies.?Night Sweats?admits.?Unexplained weight loss?denies.?Unexplained weight gain?denies.?HEENTM:?Dentures?denies.?Dizziness?denies.?Glasses/contacts?denies.?Retinopathy?de nies.?Blurred/double vision?denies.?TMJ?denies.?Discharge/drainage?denies.?Implants?denies.?Sore throat?denies.?Dental implants?denies.?Hard of hearing ?denies.?Difficulty chewing/swallowing/speaking?denies.?Nose bleeds?denies.?Sore mouth?denies.?Respiratory:?On Oxygen?denies.?Pneumonia/pleurisy?denies.?Bronchitis?denies.?Emphysema?denies.?C oughing?denies.?Cough blood?denies.?Shortness of breath?denies.?Wheezing?denies.?Cardiovascular:?Pacemaker?denies.?MVP?denies.?WPW?denies.?CHF?denies.?Heart attack?denies.?Septal defect?denies.?Rapid beat?denies.?Chest pain ?denies.?Atrial Fib.?denies.?Murmur/Palpitations?denies.?Gastrointestinal:?Hemorrhoids?denies.?Stomach/Abdominal pain?denies.?Dark blood stool?denies.?Irritable bowel ?denies.?Constipation?denies.?Diarrhea?denies.?Hematology:?Swelling?denies.?Clots?denies.?Varicose Veins?denies.?Bruising?denies.?Bleeding problem?denies.?Genitourinary:?Blood urine?denies.?Frequent/Painfu/urination/bladder control?denies.?Kidney stones?denies.?Infection (UTI)?denies.?Nephropathy?denies.?sex trans dis (STD)?denies.?Prostate?denies.?Musculoskeletal:?Hammertoes?denies.?Bunions?denies.?Back Pain?admits.?Muscle Cramps/ Resting?denies.?Muscle cramps / walking?denies.?Generalized aches and pains?admits.?Weakness?denies.?Integ.:?Cole?denies.?Scars?denies.?Corns/calluses?denies.?Ingrown nails?denies.?Painful nails?denies.?Open Sores?denies.?Rashes?denies.?Neurologic:?Difficulty sleeping?denies.?Brain disorder?denies.?Numbness?denies.?Balance trouble?denies.?Confusion?denies.?Fainting/blackouts?denies.?Tingling?denies.?Tr emors?denies.? * Medical History:?High blood pressure, Lyme disease, Chicken pox, Joint implants/screws. * Surgical History:?hip replac ement . * Family History:?Mother: canc er.?Siblings: heart attack.?Spouse: cancer.? * Social History:?Tobacco Use:?Tobacco Use/Smoking?Are you a:?nonsmoker ?Additional Findings: Tobacco Non-User?Current non-smoker ?Tobacco use other than smoking?Are you an other tobacco user??No ???Drugs/Alcohol:?Drugs?Have you used drugs other than those for medical reasons in the past 12 months??No ?Alcohol Screen?Did you have a drink containing alcohol in the past year??No ?Points?0 ?Interpretation?Negative ???Miscellaneous:?Caffeine: yes. ?Marital status: . 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 * Medications:?Taking Losartan Potassium 100 MG Tablet 1 tablet Orally Once a day , Taking cloNIDine 0.2 MG/24HR Patch Weekly 1 patch to skin Transdermal , Taking Testosterone , Taking oxyCODONE HCl 15 MG Tablet Abuse-Deterrent 1 tablet as needed Orally every 6 hrs Objective: * Vitals:?Ht: 6 ft, Wt:210, BM I:28.48, Ht-cm: 182.88 cm, Wt-k.25 kg. Assessment: Plan: * Treatment: * Images: * The named appointment provid er may or may not be the originator of this progress note, and it is not deemed complete until electronically signed by the appointment provider. Sign off status: Pending * Provider:?Lisseth Saenz DPM Date:?11/2023 Generated for Yaritza shelley/Valerie/Ochoa on:?09/30/2024 05:27 PM EST
--- OUTSIDE RECORDS SUMMARY | 2024-09-30 17:28 | XMS_ITS ---
Author Organization [facility] [place] Address [address] [place] [address] Care Team Providers Care Toll Test Worker Name Role Phone Chidi AVILA, Lannon Primary Care Provider UnaLisseth Simnetal Unavailable [phone] Allergies No Known Allergies REASON FOR VISIT pt states last pcp visit was 09/2023, Foot pain, Foot pain Medications Medication SIG (Take, Route, Frequency, Duration) [...] Osteoarthritis of midtarsal joint of left foot ([id number] ) Osteoarthritis of midtarsal joint of left foot (M19.072) Active confirmed Vital Signs Height 6 ft in 01/28/2024 Weight 210 lbs 01/28/2024 BMI 28.48 kg/m2 01/28/2024 Encounters Encounter Location Date Provider Diagnosis [address] [place] [address] 01/28/2024 Lisseth Saenz Pain in left foot [...] and Tailor's bunion of right foot M21.621 Assessments Encounter Date Diagnosis (ICD Code) Assessment [...] X ray : Foot, right 3V 01/28/2024 Next Appt Details Follow Up: prn, Reason: Progress Notes * Fabio CASSIDYDOB:1965 ( 58 yo M)Acc No.[id number]:01/28/2024 Progress Notes Patient:?Fabio Cassidy Provider:?Lisseth Saenz DPM :1965???Age:58 Y???Sex:Male Chaitanya e:01/28/2024 Address:[facility] [address], [place], [place] Pcp:Enrike Murillo MD Subjective: * Chief Complaints: * ???Pt states last pcp visit was 09/2023Foot painFoot pain * HPI: ???Foot Pain:?Nature:?aching, stiffness, swelling, throbbing.?Location:?Top, Midfoot, LEFT , Outside, Bottom, Forefoot, RIGHT.?Duration:?several years.?Onset:?Pt relates truama to left foot several years ago.?Course:?worse.?Aggrevated:?any pressure, standing, walking.?Treatments:?rest/alter normal daily activity , padding , change in shoes.? * ROS:?General/Constitutional:?Nausea?denies.?Vomiting?denies.?Hunger Thirst?denies.?Loss appetite?denies.?Chills?denies.?Fatigue?denies.?Fever?denies.?Night Sweats?admits.?Unexplained weight loss?denies.?Unexplained weight gain?denies.?HEENTM:?Dentures?denies.?Dizziness?denies.?Glasses/contacts?denies.?Retinopathy?de nies.?Blurred/double vision?denies.?TMJ?denies.?Discharge/drainage?denies.?Implants?denies.?Sore throat?denies.?Dental implants?denies.?Hard of hearing ?denies.?Difficulty chewing/swallowing/speaking?denies.?Nose bleeds?denies.?Sore mouth?denies.?Respiratory:?On Oxygen?denies.?Pneumonia/pleurisy?denies.?Bronchitis?denies.?Emphysema?denies.?C oughing?denies.?Cough blood?denies.?Shortness of breath?denies.?Wheezing?denies.?Cardiovascular:?Pacemaker?denies.?MVP?denies.?WPW?denies.?CHF?denies.?Heart attack?denies.?Septal defect?denies.?Rapid beat?denies.?Chest pain ?denies.?Atrial Fib.?denies.?Murmur/Palpitations?denies.?Gastrointestinal:?Hemorrhoids?denies.?Stomach/Abdominal pain?denies.?Dark blood stool?denies.?Irritable bowel ?denies.?Constipation?denies.?Diarrhea?denies.?Hematology:?Swelling?denies.?Clots?denies.?Varicose Veins?denies.?Bruising?denies.?Bleeding problem?denies.?Genitourinary:?Blood urine?denies.?Frequent/Painfu/urination/bladder control?denies.?Kidney stones?denies.?Infection (UTI)?denies.?Nephropathy?denies.?sex trans dis (STD)?denies.?Prostate?denies.?Musculoskeletal:?Hammertoes?denies.?Bunions?denies.?Back Pain?admits.?Muscle Cramps/ Resting?denies.?Muscle cramps / walking?denies.?Generalized aches and pains?admits.?Weakness?denies.?Integ.:?Cole?denies.?Scars?denies.?Corns/calluses?denies.?Ingrown nails?denies.?Painful nails?denies.?Open Sores?denies.?Rashes?denies.?Neurologic:?Difficulty sleeping?denies.?Brain disorder?denies.?Numbness?denies.?Balance trouble?denies.?Confusion?denies.?Fainting/blackouts?denies.?Tingling?denies.?Tr emors?denies.? * Medical History:? * Surgical History:?hip replac ement * Hospitalization/Major Diagno stic Procedure:?No Hospitalization History. * Family History:?Mother: dece ased, diagnosed with Other malignant neoplasm of unspecified site.?Father: , diagnosed with Other malignant neoplasm of unspecified site.?Siblings: heart attack.? * Social History:?Tobacco Use:?Tobacco Use/Smoking?Are you a:?nonsmoker ?Additional Findings: Tobacco Non-User?Current non-smoker ?Tobacco use other than smoking?Are you an other tobacco user??No ???Drugs/Alcohol:?Drugs?Have you used drugs other than those for medical reasons in the past 12 months??No ?Alcohol Screen?Did you have a drink containing alcohol in the past year??No ?Points?0 ?Interpretation?Negative ???Miscellaneous:?Caffeine: yes, 1-2 cups per day. ?Exercise: yes, walking. ?Marital status: . 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 * Medications:?TakingLosartan Potassium 100 MG Tablet 1 tablet Orally Once a daycloNIDine 0.2 MG/24HR Patch Weekly 1 patch to skin Transdermal Testosterone oxyCODONE HCl 15 MG Tablet Abuse-Deterrent 1 tablet as needed Orally every 6 hrsMedication List reviewed and reconciled with the patientTaking Losartan Potassium 100 MG Tablet 1 tablet Orally Once a dayTaking cloNIDine 0.2 MG/24HR Patch Weekly 1 patch to skin Transdermal Taking Testosterone Taking oxyCODONE HCl 15 MG Tablet Abuse-Deterrent 1 tablet as needed Orally every 6 hrsMedication List reviewed and reconciled with the patient * Allergies:?N.K.D.A.yes[Sunni pennington Verified] Objective: * Vitals:?Ht:6 ft, Wt:210, BMI :28.48, Shoe size: 10.5, Ht-cm: 182.88 cm, Wt-k.25 kg. * Examination: ???General Examination: ?GENERAL APPEARANCE:?Reveals a pleasant, alert, well-nourished, well- developed, well hydrated individual, who demonstrates proper attention to hygiene/body habitus, and is in no acute distress, Pt serves as own?historian for office visit today.?ORIENTED:?person, place, and time.?Neurological: ?SENSORY:?Neurological exam reveals intact sensorium, pain sensation normal, vibration sensation intact, pinprick sensation is normal in the lower extremities, Pt denies, anesthesia, burning, paresthesia, tingling, B/L.?TINEL'S COMPRESSION:? Negative, Medial dorsal cutaneous nerve distribution, Intermediate dorsal cutaneous nerve distribution, Deep peroneal nerve distribution, Left , Negative, Lateral sural nerve distribution, Right.?DEEP TENDON REFLEXES:?Achilles, 2/4, B/L.?Vascular: ?DP PULSES:?3/4, B/L.?PT PULSES:?3/4, B/L.?CAPILLARY FILL TIME:?immediate, all digits, B/L.?SKIN TEMPERTURE GRADIENT OF THE LOWER EXTERMITIES:?warm to cool, proximal to distal, B/L.?HAIR GROWTH/TEXTURE/ELASTICITY/TURGOR:?normal, B/L.?PIGMENTATION:?normal, B/L.?EDEMA:?absent, B/L.?Dermatologic: ?SKIN FINDINGS:?Skin exam reveals normal texture, elasticity, and turgor. There are no masses. The interspaces are clear.?Orthopedic: ?MUSCLE STRENGTH:?5/5 all groups in a symmetrical fashion , B/L.?FOOT MORPHOLOGY:? Prominent, painful 1st Met-Cuneiform joint without inflammation, LEFT.?TAILOR'S BUNION:?Prominent, painful, with inflammation, 5th MTH/MPJ, RIGHT.?X-Rays - IMAGING REPORT: ?Clinical Indication(s):? Evaluate for Fracture, Evaluate Biomechanical Deformity , Evaluate for Fracture, Evaluate Biomechanical Deformity.?Views:? 3 views of Foot, AP, LAT, LO, , B/L.?Findings:?normal bone and soft tissue density consistent for patients age and sex, eburnation dorsal 1st MT/Cun. jt, dorsal degenerative changes of the tarsal joints , hypertrophy 5th MTH , increase in soft tissue contour and density at the symptomatic site.?Fracture:?Negative fractures identified.?Neuroma Pain: ?PALPATION:?No interspace pain noted on palpation.? Assessment: * Assessment: 1.?Pain in left foot - M79.6 72?2.?Osteoarthritis of midtarsal joint of left foot - M19.072 (Primary)?3.?Pain in left ankle and joints of left foot - M25.572?4.?Bursitis of left foot - M77.52?5.?Pain in right foot - M79.671?6.?Pain in right ankle and joints of right foot - M25.571?7.?Bursitis of right foot - M77.51?8.?Tailor's bunion of right foot - M21.621? Plan: * Treatment: 2.?Pain in right foot?Imaging: X ray : Foot, right 3V * Procedure Codes:?57106 X-RAY EXAM OF LEFT FOOT 3V, Modifiers: 26 , HL94751 X-RAY EXAM OF RIGHT FOOT 3V, Modifiers: 26 , RT * Preventive Medicine:? ??Counseling:?Discussion:?-04: Office or other outpatient visit for the evaluation and management of a new patient, which required a medically appropriate history and/or examination and MODERATE level of DECISION MAKING for: 1 OR MORE CHRONIC PROBLEM(S) THATS WORSENING, 2 STABLE CHRONIC PROBLEMS, A NEWLY DIAGNOSED PROBLEM WITH UNCERTAIN PROGNOSIS, AN ACUTE COMPLICATED INJURY WITH MULTIPLE TREATMENT OPTIONS, OR AN ACUTE PROBLEM WITH ACCOMPANYING SYSTEMIC SYMPTOMS, THAT POSE(S) A MODERATE RISK OF MORBIDITY. THIS CONDITION MAY ALSO INCLUDE RX DRUG MANAGEMENT, OR A DECISON FOR MINOR SURGERY. The visit on the day of the encounter encompassed interpreting the data and educating the patient as to the nature of their condition, treatment options available according to their individual PMH, meds, allergies, and overall health/living conditions, as well as any potential risks or complications that may occur from a failure to adhere to, and participate in, the recommended course of therapy. The discussion included a complete verbal, and/or written explanation of the examination results, any x-rays taken, the proposed diagnosis, and outline of the treatment plan. A schedule for future care needs was also explained. The patient verbalized an understanding of the instructions at this time and agreed to be an active participant in their treatment. If the patient should think of any questions or concerns after the visit, I have encouraged the patient to call the office.?Arthritis:?The patient was counseled on the various etiologies for their Arthritis including genetic, history of injury or trauma, abnormal foot biomechanics leading to excessive joint wear, and use/overuse. We discussed the various treatment options from no treatment, to topical analgesics such as Biofreeze gel, Aspercream, Voltaren gel, Lidoderm patches, CBD oils, THC creams, and Custom-compounded topical cream preparations to natural oral products such as Glucosamine Sulfate/Chondroitin/MSM/Collegen to analgesic Tylenol, to anti-inflammatory medications such as Ibuprofen/Naproxen, and the use of oral steroids if needed. Cardiac, Kidney, and GI issues were discussed RE: potential complications of oral anti-inflammatories. We discussed several other treatment options consisting of accom shoes, supportive innersoles, AFO bracing/support, cortisone injection therapy, and surgical resection of the arthritic joint(s) or fusion reconstruction if necessary. We discussed the advantages and disadvantages of conservative (vs) surgical treamtents including pain relief, improved function/activities of daily life, return to exercise to failure, expense, systemic complications, infection, [id number], prolongued postop course. Patient questions re: the various treatment options available, their successes and potential failures, and residential effects were discussed and the answers were verbally confirmed understood.?Metatarsalgea:?I explained to the patient the possible etiologies of their Metatarsalgea Foot pain, including foot type/shoegear/activity level/exercise routine and the risks/benefits of all the different treatment options for pain including: No treatment at all, Rest, Ice, NSAIDs(only if well tolerated after meals), New/supportive Shoegear, Strappings and Tapings, Foot/Ankle AFO Bracing, Stretching exercises, Deep Tissue Massage, Arch support/shoe inserts, Custom orthoses, Topical analgesics including Aspercream/Voltaren gel, Physical Therapy, Cortisone injection therapy, EPAT/ESWT. Advantages and disadvantages of each option were discussed and the patients questions re: shoegear, custom vs prefabricated inserts, activity level, PO vs Topical medications (and their respective potential complications/drug interactions/side effects), and consistency in home treatment regimens for optimal success were answered to their verbally confirmed satisfaction.?Orthotics:?I explained to the patient the benefits of OT use. I explained that orthoses are medically necessary to decrease the foot pain through proper mechanical control, support of their foot, I explained to the patient the benefits of OT use. I explained that orthoses are medically necessary to decrease the foot pain through proper mechanical control, support of their foot, cushion the forefoot by supplementing the soft tissue, possibly delay of the progression of the Tailor bunion deformity, possibly prevent surgery.?P.R.I.C.E.:?The patient was counseled on the use of P.R.I.C.E. and NSAIDS (if well tolerated) to aid in the recovery from their painful condition, The patient was counseled on the use of P.R.I.C.E. and NSAIDS (if well tolerated) to aid in the recovery from their painful condition.?Podiatric Surgery Counseling:?Surgical procedures to treat the patients foot problem were discussed. We reviewed the risks of the procedure (described below) vs not having the procedure (persistent pain, deformity, risk for skin ulceration/infection, loss of toe). We discussed the potential procedure complications including, but not limited to: pain, swelling, bleeding, scarring, numbness, infection, delayed/non healing, floppy/unstable/shorthened toe, recurrence, failure of the procedure, overcorrection leading to plantarflexed/downward positioned toe, recurrence, need for further surgery, as well as the possibility for loss of the toe itself. We discussed the use of IV/Local anesthesia, and the usual post-op course for healing. No guarentees were given. The patient verbally indicated a full understanding of the above conversation, and any other of their questions were answered to their satisfaction, Surgical procedures to treat the patients foot problem were discussed. We reviewed the risks of the procedure (described below) vs not having the procedure (persistent pain, deformity, risk for skin ulceration/infection, loss of toe). We discussed the potential procedure complications including, but not limited to: pain, swelling, bleeding, scarring, numbness, infection, delayed/non healing, floppy/unstable/shorthened toe, recurrence, failure of the procedure, overcorrection leading to plantarflexed/downward positioned toe, recurrence, need for further surgery, as well as the possibility for loss of the toe itself. We discussed the use of IV/Local anesthesia, and the usual post-op course for healing. No guarentees were given. The patient verbally indicated a full understanding of the above conversation, and any other of their questions were answered to their satisfaction, discussed exostectomy of left midfoot, pt is on chronic pain meds for his back, discussed that his doctor who RX his pain meds Dr Murillo will manage his pain post op.?Shoe Gear Counseling:?The patient and I reviewed the types of shoes they should be wearing. My recommendation included obtaining a well-fitted shoe with a good supportive, non-foldable nor twistable sole, plenty of toe/room for the forefoot, and proper arch support. Based on todays examination, I recommended the patient look for new shoes, by having their feet professionally measured. We discussed that generally the best time of the day for a shoe fitting is the afternoon. Different shoes types and brands to best match the patients occupation and vocation were discussed. Specific brand selection will be up to the patient, their individual foot condition/deformities, and fit. The patient and I reviewed the standard new shoe break in period by wearing them for a few hours a day while checking for redness or sores as wear time is increased. The patient verbally confirmed to understanding the information discussed, The patient and I reviewed the types of shoes they should be wearing. My recommendation included obtaining a well-fitted shoe with a good supportive, non-foldable nor twistable sole, plenty of toe/room for the forefoot, and proper arch support. Based on todays examination, I recommended the patient look for new shoes, by having their feet professionally measured. We discussed that generally the best time of the day for a shoe fitting is the afternoon. Different shoes types and brands to best match the patients occupation and vocation were discussed. Specific brand selection will be up to the patient, their individual foot condition/deformities, and fit. The patient and I reviewed the standard new shoe break in period by wearing them for a few hours a day while checking for redness or sores as wear time is increased. The patient verbally confirmed to understanding the information discussed.?X-rays:?Discussed and reviewed the X-rays with the patient. We discussed how the findings relate to the patients symptoms/complaints. Answered any and all questions..? * Follow Up:?prn * Images: * Sign off status: Completed true * Provider:?Lisseth Saenz DPM Date:? Generated for Yaritza shelley/Valerie/Ochoa on:?09/30/2024 05:28 PM EST History and Physical Notes * HPI (History of Present Illness) Category Sub-Category Detail Notes Category Not es Foot Pain Nature: aching, stiffness, swelling, throbbing Location: Top, Midfoot, LEFT , Outside, Bottom, Forefoot, RIGHT Duration: several years Onset: Pt relates truama to left foot several years ago Course: worse Aggravated: any pressure, standi ng, walking Treatments: rest/alter normal da peterson activity , padding , change in shoes Examination Category Sub-Category Detail Notes Category Not es Neuroma Pain PALPATION: No interspace pain noted on palpation Neurological SENSORY: Neurological exa m reveals intact sensorium, pain sensation normal, vibration sensation intact, pinprick sensation is normal in the lower extremities, Pt denies, anesthesia, burning, paresthesia, tingling, B/L TINEL'S COMPRESSION: Negative, Medial do rsal cutaneous nerve distribution, Intermediate dorsal cutaneous nerve distribution, Deep peroneal nerve distribution, Left , Negative, Lateral sural nerve distribution, Right DEEP TENDON REFLEXES: Achilles, 2/4, B/L Dermatologic SKIN FINDINGS: Skin exam reveal s normal texture, elasticity, and turgor. There are no masses. The interspaces are clear Orthopedic FOOT MORPHOLOGY: Prominent, pain ful 1st Met-Cuneiform joint without inflammation, LEFT TAILOR'S BUNION: Prominent, painful, with inflammation, 5th MTH/MPJ, RIGHT MUSCLE STRENGTH: 5/5 all groups in a symmetrical fashion , B/L General Examination GENERAL APPEARANCE: Reveals a pleasant, alert, well- nourished, well-developed, well hydrated individual, who demonstrates proper attention to hygiene/body habitus, and is in no acute distress, Pt serves as own historian for office visit today ORIENTED: person, place, and t millicent Vascular DP PULSES (B): 3/4, B/L PT PULSES (B): 3/4, B/L CAPILLARY FILL TIME: immediate, all digi ts, B/L TEMPERTURE GRADIENT (C): warm to cool, p roximal to distal, B/L TROPHIC CONDITION-TEXTURE/ELASTICITY/TURGOR/HAIR GROWTH (B): normal, B/L EDEMA (C): absent, B/L PIGMENTATION: normal, B/L X-Rays - IMAGING REPORT Findings: normal b one and soft tissue density consistent for patients age and sex, eburnation dorsal 1st MT/Cun. jt, dorsal degenerative changes of the tarsal joints , hypertrophy 5th MTH , increase in soft tissue contour and density at the symptomatic site Fracture: Negative fractures i dentified Views: 3 views of Foot, AP, LAT, LO, , B/L Clinical Indication(s): Evaluate for Fra cture, Evaluate Biomechanical Deformity , Evaluate for Fracture, Evaluate Biomechanical Deformity
== END 2024-09-30 17:52 | disposition home or self-care (01) ==
PROVIDERS: PCP Internal Medicine; Visit Provider Internal Medicine
DX: Z00.00 Encounter for general adult medical examination without abnormal findings (principal); E78.00 Pure hypercholesterolemia, unspecified; Z68.29 Body mass index [BMI] 29.0-29.9, adult; E66.9 Obesity, unspecified; E34.9 Endocrine disorder, unspecified; I10 Essential (primary) hypertension; D75.1 Secondary polycythemia; M16.11 Unilateral primary osteoarthritis, right hip; M51.360 Other intervertebral disc degeneration, lumbar region with discogenic back pain only; F51.01 Primary insomnia; F41.9 Anxiety disorder, unspecified

== ENCOUNTER → 2024-09-30 17:25 | Outpatient (BNVA) | payer OTHER, SELFPAY | PROVIDERS: PCP Internal Medicine; Visit Provider Internal Medicine | DX: Z00.00 Encounter for general adult medical examination without abnormal findings (principal); E78.00 Pure hypercholesterolemia, unspecified; I10 Essential (primary) hypertension; D75.1 Secondary polycythemia; E34.9 Endocrine disorder, unspecified; M51.360 Other intervertebral disc degeneration, lumbar region with discogenic back pain only; F51.01 Primary insomnia; F41.9 Anxiety disorder, unspecified; E66.9 Obesity, unspecified; Z68.29 Body mass index [BMI] 29.0-29.9, adult; Z79.891 Long term (current) use of opiate analgesic; Z79.899 Other long term (current) drug therapy; Z96.641 Presence of right artificial hip joint | CPT/HCPCS: 96127 ==

== ENCOUNTER 2024-11-04 14:03 | Outpatient (AMB) | payer OTHER, SELFPAY ==
[2024-11-04 14:29] VITALS: BP 144/90; PULSE 103; O2SAT 97; BMI 30.5
--- NOTE | 2024-11-04 14:29 | A.OFFVIS_ITS ---
Vital Signs 11/04/24 14:29 Height 6 ft Weight 224 lb 13.944 oz BMI 30.5 BP 144/90 H Blood Pressure Location Rt brachial Position Sitting Pulse 103 H Pulse Source Pulse Oximeter Pulse Oximetry (%) 97 Oxygen Delivery Method Room Air Intake Visit Reasons: Endocrine disorder, unspecified Intake Note: New patient present today for Endocrine disorder, unspecified office visit. Clinical Data Manager Required: No Accompanied by: Self / Same As Patient Allergies No Known Allergies Allergy (Verified 11/04/24 14:30) Medication List - Last Reconciled 11/04/24 by Vannesa Erickson MD [Syringe needle (disposable) 18G x 1 ml As directed] atorvastatin 40 mg PO DAILY 90 days clonidine HCl 0.2 mg PO DAILY 90 days ibuprofen 800 mg PO TID PRN losartan 100 mg PO DAILY 90 days needle (disp) 19 G use for testosterone injections ONCE A WEEK (3 months' supply) oxycodone 15 mg PO Q6H PRN 6 days oxycodone 15 mg PO Q6H PRN 28 days syringe with needle (BD Luer-Say Syringe) 1 IM every week; testosterone cypionate 100 mg (0.5 mL) IM QWEEK 28 days tizanidine 4 mg PO BID PRN 30 days HPI Comments Details: 59-year-old male coming in today with the elevated testosterone levels. Currently on IM testosterone cypionate 100 mg weekly injection ( Sunday) Started [address] Pratt his last endo prescribed the Testosterone per patient was due to secondary hypogonadism , had decreased libido at the time , no decrease in muscle mass, nor erectile dysfunction, no tiredness or fatigue. This was at [place] last endo retired 2005, fractured T9 fell off a roof , on pain meds since 2007 or 2008 on Oxycodone 15 mg every 4 hrs No low testosterone level noted in the chart Total testosterone has been high since 2019 with most recent lab from 06/10/2024 showing total testosterone of 1094, free testosterone high at 193.6 Hematocrit elevated at 59.4 from July 2023, hematocrit at 53.1 from May 2024. Currently denies any sexual dysfunction, tiredness, fatigue, No history of [place], stroke, blood clots. 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 Physical exam General: sitting comfortably in no acute distress HEENT: normocephalic/atraumatic, Neck: supple Cardiac: normal heart sounds Pulm: normal breath sounds B/L Abd: not distended, no tenderness Extremities: no edema, no signs of myxedema Neuro: AAO x3, Speech: normal, no facial droop, moving all 4 extremities Laboratory Tests 10/09/19 05/13/21 07/20/23 12:50 10:35 11:30 Hgb 19.7 H Hct 59.4 H Albumin 25-OH Vitamin D Total TSH Total Testosterone 1046 1673 H 1363 H Free Testosterone 239.5 H Fr Testosterone Dialys 418.3 H 231.7 H 06/10/24 16:56 Hgb 17.9 Hct 53.1 H Albumin 4.6 25-OH Vitamin D Total 47.3 TSH 1.61 Total Testosterone 1094 Free Testosterone Fr Testosterone Dialys 193.6 H PFSH Medical History History of obstructive sleep apnea Hypotestosteronism Polycythemia Pure hypercholesterolemia History of Lyme disease Obesity (BMI 30-39.9) Anxiety Primary insomnia Lumbar degenerative disc disease Primary osteoarthritis of right hip Benign essential hypertension Surgical History History of nasal septoplasty History of arthroplasty of right hip Family History Father Pancreatic cancer Mother Brain tumor Social History Housing: Apartment Alcohol intake: never Patient Tobacco Use Status: Never used Tobacco e-Cigarette/Vaping Use: Never Used Second Hand Smoke Exposure: No service: No Current occupational status: employed Current occupational exposures/hazards: No Cognitive needs: No Hearing needs: No Vision needs: No Physical Exam Vital Signs: Last Vital Signs Pulse 103 H 11/04/24 14:29 BP 144/90 H 11/04/24 14:29 Pulse Ox 97 11/04/24 14:29 Oxygen Delivery Method Room Air 11/04/24 14:29 BMI result Body Mass Index 30.5 Assessment & Plan Assessment & Plan (1) Hypotestosteronism: Comment: Is mostly iatrogenic and NOT age-related Code(s): E34.9 - Endocrine disorder, unspecified Category: Medical Plan: 59-year-old male with a 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 At this time I do not have records of his low testosterone levels are any records from his prior technical training coordinator, he last saw has lost technical training coordinator who retired over 5 years ago, we would not be able to obtain these records. Apparently PCP has been managing this for him. I explained to the patient that his hematocrit levels have been high and given secondary polycythemia he has had risk of stroke or blood clots. I would stop his testosterone replacement therapy and assess his testosterone levels as well as his hematocrit levels. Maybe he needs a dose reduction but currently with his hematocrit level from May 2024 at 53.6, which is pretty close to 54%, testosterone replacement therapies a contraindication. He takes his testosterone injection on Sunday afternoon/evening, hence tomorrow Sunday would be his trough level. Plan: -check testosterone, free testosterone, bioavailable testosterone, SHBG,, FSH, LH, PSA, hematocrit and hemoglobin levels at 08:00 tomorrow fasting -we will communicate results within with plan to stop testosterone replacement therapy -we will repeat labs in 3 months with follow up (2) Polycythemia: Code(s): D75.1 - Secondary polycythemia Category: Medical Plan: See above Plan I spent 45 minutes in reviewing the record, seeing the patient and documenting in the medical record. Orders: Orders Testosterone, Free/Total Today D75.1 - Secondary polycythemia, E34.9 - Endocrine disorder, unspecified Sex Hormone Binding Globulin Today D75.1 - Secondary polycythemia, E34.9 - Endocrine disorder, unspecified Hemoglobin Today D75.1 - Secondary polycythemia, E34.9 - Endocrine disorder, unspecified PSA,Total (Free>4and<10) Today D75.1 - Secondary polycythemia, E34.9 - Endocrine disorder, unspecified Bioavailable Testosterone Today D75.1 - Secondary polycythemia, E34.9 - Endocrine disorder, unspecified Follicle Stimulating Hormone Today D75.1 - Secondary polycythemia, E34.9 - Endocrine disorder, unspecified Lutenizing Hormone Today D75.1 - Secondary polycythemia, E34.9 - Endocrine disorder, unspecified Hematocrit Today D75.1 - Secondary polycythemia, E34.9 - Endocrine disorder, unspecified Patient Instructions: do fasting 8 AM blood work tmw We will give you a call once results are back likely with plan to stop testosterone Repeat labs will be ordered for 3 months prior to your next appointment Coding Level of Care Code New Pt Level 4 (77124) Diagnoses Hypotestosteronism E34.9 Polycythemia D75.1 Time Spent (min) 45
--- OUTSIDE RECORDS SUMMARY | 2024-11-04 17:34 | XMS_ITS | Clinical Summary ---
Author Organization [facility] Address [address] [facility] [address] [place] [address] Phone Care Team Providers Care Bronze Chaser Name Role Phone Enrike Murillo MD Primary Care Provider [phone] [phone] Allergies No known active allergies Medications Medication Sig Dispensed Refills Start Date End Date Status oxyCODONE 15 MG immediate release tablet Take 15 mg by mouth 4 (four) times a day. Active atorvastatin (LIPITOR) 10 MG tablet Take 10 mg by mouth every evening. Active losartan (COZAAR) 50 MG tablet Take 50 mg by mouth every evening. Active cloNIDine HCL (CATAPRES) 0.2 MG tablet Take 0.2 mg by mouth 2 (two) times a day. Active Medication-Free Text Inject into the muscle once a week. Active acetaminophen (TYLENOL) 500 MG tablet Take 2 tablets (1,000 mg total) by mouth every 6 (six) hours. Do not take more than 3000mg acetaminophen per day (including in other prescribed or zslt-gil-shjbsoo medications). 0 01/15/2020 Active Additional Information Patient not taking.Reported on 02/13/2020 indomethacin (INDOCIN) 25 MG capsule Take 1 capsule (25 mg total) by mouth 3 (three) times a day with meals. 96 capsule 01/15/2020 Active Additional Information Patient not taking.Reported on 02/13/2020 ibuprofen (ADVIL,MOTRIN) 800 MG tablet TK 1 T PO TID WF PRF PAIN 01/27/2020 Active Active Problems Problem Noted Date Diagnosed Date Osteoarthritis of right hip 01/14/2020 Hypertensive disorder Overview (01/14/2020): on meds - clonidine and losartan Hyperlipidemia Overview (01/14/2020): on meds Sleep apnea Overview (01/14/2020): no cpap mild per pt Social History Tobacco Use Types Packs/Day Years Used Date Smoking Tobacco: Never Smokeless Tobacco: Never Alcohol Use Standard Drinks/Week Comments Not Currently 0 (1 standard drink = 0.6 oz pur e alcohol) Education Answer Date Recorded Are you interested in more education? Not on seymour e 12/08/2022 Are you concerned about learning? Not on file 12/08/2022 No 12/08/2022 No 12/08/2022 Digital Access Answer Date Recorded No 01/09/2023 No 01/09/2023 Reliable internet access at home? Not on file 01/09/2023 Device with a working camera? Not on file Sex and Gender Information Value Date Recorded Sex Assigned at Not on file Gender Identity Not on file Sexual Orientation Not on file Last Filed Vital Signs Vital Sign Reading Time Taken Comments Blood Pressure 189/100 02/14/2020 10:40 AM EDT Pulse 89 02/14/2020 10:40 AM EDT Temperature 36.6 ??C (97.9 ??F) 02/14/2020 8:40 AM ED T Respiratory Rate 18 02/14/2020 10:40 AM EDT Oxygen Saturation 97% 02/14/2020 10:40 AM EDT Inhaled Oxygen Concentration - - Weight 99.8 kg (220 lb) 05/03/2020 10:10 AM EDT Height 182.9 cm (6') 05/03/2020 10:10 AM EDT Body Mass Index 29.84 05/03/2020 10:10 AM EDT Plan of Treatment Health Maintenance Due Date Last Done Comments BLOOD PRESSURE 1964 LIPID PANEL 1964 DEPRESSION SCREENING 1976 HEPATITIS B SCREENING 1982 HEPATITIS C SCREENING 1982 HIV ONE-TIME SCREENING (18-6 5 YEARS) 1982 COLOGUARD 2009 COLONOSCOPY 2009 COLORECTAL CANCER SCREENING 2009 FIT TEST 2009 FOBT 2009 SIGMOIDOSCOPY 2009 VIRTUAL COLONOSCOPY 2009 PNEUMOCOCCAL VACCINES (50+ years) (1 of 1 - PCV) 2014 ZOSTER VACCINES (1 of 2) 2014 CREATININE LEVEL 02/12/2021 02/13/2020, 01/15/2020, 01/08/2020 POTASSIUM LEVEL 02/12/2021 02/13/2020, 01/15/2020, 01/08/2020 INFLUENZA VACCINE (#1) 2024 COVID-19 VACCINE ( - 2023-2 5 season) 2024 Adult Td,Tdap Booster 04/09/2028 04/09/2018 RSV VACCINE (1 - 1-dose 75+ series) 2039 SMOKING STATUS SCREENING (On ce After 26 Yrs) Completed 05/27/2020 HEPATITIS A VACCINES Aged Out No long er eligible based on patient's age to complete this topic HEPATITIS B VACCINES Aged Out No long er eligible based on patient's age to complete this topic HIB VACCINES Aged Out No longer eligi ble based on patient's age to complete this topic MENINGOCOCCAL VACCINES (ACWY) Aged Out No longer eligible based on patient's age to complete this topic Medical Devices Implanted Type Area Respiratory Practitioner Device Identifier Shelf Expiration Date Model / Serial / Lot Acetabular Liner 7.0mm 36x54 Size Jj Longevity Highly Crosslinked Polyethylene Offset - [id number] Implanted:Qty: 1 on 01/14/2020 by Dwaine Edmonds MD at [facility] Right: Hip KINJAL / DIV [employer] [id number] 11/10/2021 [id number] / / [id number] Description:The implant type , laterality (when applicable), size, and expiration date have been visually and verbally confirmed by the Surgeon, Circulating RN and Scrub Personnel. Acetabular Shell 54mm Size Jj Continuum Tivanium Trabecular Metal Hemisphere Cluster Hole - [id number] Implanted:Qty: 1 on 01/14/2020 by Dwaine Edmonds MD at [facility] Right: Hip KINJAL / [employer] [id number] 09/12/2029 [id number] / / [id number] Description:The implant type , laterality (when applicable), size, and expiration date have been visually and verbally confirmed by the Surgeon, Circulating RN and Scrub Personnel. Hip Stem 18.0mm Taporloc 133 Mp Rdcd Type1 Pps Ho - [id number] Implanted:Qty: 1 on 01/14/2020 by Dwaine Edmonds MD at [facility] Right: Hip [employer] 04/12/2029 [id number] / / [id number] Description:The implant type , laterality (when applicable), size, and expiration date have been visually and verbally confirmed by the Surgeon, Circulating RN and Scrub Personnel. Procedures Procedure Name Priority Date/Time Associated Diagnosis Comments BASIC METABOLIC PANEL STAT 02/13/2020 7:43 PM EDT from Last 3 Months or Most Recently Relevant to Health Maintenance Results * (ABNORMAL) Basic metabolic panel (02/13/2020 7:43 PM EDT) SODIUM 142 136 - 145 mmol/L [facility] CHLORIDE 100 95 - 106 mmol/L [facility] POTASSIUM 3.7 3.5 - 5.2 mmol/L [facility] CO2 25 20 - 31 mmol/L [facility] BUN 20 9 - 23 mg/dL [facility] CREATININE 1.12 0.50 - 1.30 mg/dL [facility] GLUCOSE 108(H) 74 - 106 mg/dL [facility] CALCIUM 10.0 8.7 - 10.4 mg/dL [facility] EGFR 74 >60 mL/min/1.7 3m2 [facility] Comment:Estimated glomerular filtration rate calculated using the CKD-EPI equation. ANION GAP 17 3 - 17 mmol/L [facility] Blood 02/13/2020 7:43 PM EDT 02/13/2020 8:03 PM EDT Miguelina Beck MD LAB BLOOD ORD ERABLES [facility] [address] [place] [address] from Last 3 Months or Most Recently Relevant to Health Maintenance Advance Directives For more information, please contact: [phone] (9AM - 5PM [facility], Sunday-Sunday) * Full Code (Presumed) (Latest Code Status on File) Date Activated Date Inactivated Comments 01/14/2020 5:50 PM * Full Code (Presumed) Date Activated Date Inactivated Comments 01/14/2020 11:07 AM 01/14/2020 5:50 PM Care Teams Bronze Chaser Relationship Specialty Start Date End Date Enrike Murillo MD [address] [place] [address] [address] [place] [address] PCP - General Internal Medicine 10/16/19 Additional Source Comments The information contained in this document represents components of the legal health record. It is not the complete legal health record.[facility]
--- OUTSIDE RECORDS SUMMARY | 2024-11-04 17:34 | XMS_ITS | Data Portability ---
Author Organization [facility] Pain Managem ent, PAIN OFFICE Address [address] [facility] [address] [place] [address] Care Team Providers Care Documentation Specialist Name Role Phone NAHUM SINGH Primary Care Provider Assessment Encounter Date Assessment Date Assessment LastModified [...] appointment has been made. He needs a commercial truck driver on the day of the procedure. [...] By Organization Details Last Modified Time 10/09/2019 [id number] He was advised against bed rest lasting longer than four days and to continue activities as tolerated. [email or web address] Not available 10/20/2019 16:47:57 Reason for Referral None Reported. Problems Name Problem SNOMED Code Status Onset Date Resolution Date Notes Provider Name and Address Organization Details Recorded Time Arthritis of right hip 33083744323562 01 Active Brenda butler [facility] Pain Management 0 15:23:58 Problem Notes None [...] Available No t Available BD Regular Bevel Lynn 19 gauge x 1 USE TO INJECT [...] Updated DateTime 0 182.88 cm 29.4 kg/m2 71486.5 4 g 90 /min 95 % 95 [...] SNOMED-CT Code Diagnosis ICD10 Code Diagnosis Note 52939 Michael Curry MD PAIN OFFICE [address] [facility] [address] [place] [address] 10/09/2019 14:46:57 10/20/2019 16:53:24 Arthritis of right hip 9130786897 404831 M13.851 Health Concerns Section Related Observation LastModified by Organization Detai ls LastModified Time None Recorded Concern Status LastModified by Organization Details LastModified Time None Recorded Advance Directives Directive None Recorded Payers Encounter Date Sequence Insurance Name Policy Number Policy Nieto Covered Member ID Nieto Member ID Guarantor Name 10/09/2019 1 [employer] (POS) Fabio Kebede [id number] Fabio Kebede Notes Date Note Type Note [...] left hip osteoarthritis. Michael Curry MD [address] [facility] , [address], [place], [address], [facility] Pain Management 10/23/2019 09:58:36
--- OUTSIDE RECORDS SUMMARY | 2024-11-04 17:34 | XMS_ITS ---
Author Organization [facility] Address [address] [facility] [place] [address] Care Team Providers Care Furnace Maintenance Name Role Phone [facility] Primary Care Provider Lisseth Cramer Unavailable [phone] REASON FOR VISIT snow Medications Medication SIG [...] 11/15/2023 Encounters Encounter Location Date Provider Diagnosis [address] [place] [id number] 11/15/2023 Lisseth Saenz Plan Of Treatment No Information Progress Notes * Fabio CASSIDYDOB:1965 ( 59 yo M)Acc No.[id number]:11/15/2023 Progress Notes Patient:?Fabio CASSIDY Provider:?Lisseth Saenz DPM :1965???Age:58 Y???Sex:Male Chaitanya e:11/15/2023 Address:[address], [id number] Pcp:Enrike Murillo MD Subjective: * Chief Complaints: [...] ?Interpretation?Negative ???Miscellaneous:?Caffeine: yes. ?Marital status: . 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 * Medications:?Taking Losartan Potassium 100 MG [...] Saenz DPM Date:?11/2023 Generated for Yaritza shelley/Valerie/Ochoa on:?11/04/2024 05:34 PM EDT
--- OUTSIDE RECORDS SUMMARY | 2024-11-04 17:34 | XMS_ITS | Clinical Summary ---
Author Organization [facility] Address [address] [place] [address] Care Team Providers Care Counsel Name Role Phone Unavailable Primary Care Provider [...]
--- OUTSIDE RECORDS SUMMARY | 2024-11-04 17:35 | XMS_ITS | Encounter Summary ---
Author Organization [facility] Address [address] [place] [address] Phone Care Team Providers Care Computer Security Specialist Name Role Phone Enrike Murillo MD Primary Care Provider [phone] [phone] Encounter Details Date Type Department Care Team (Late st Contact Info) Description 01/14/2020 Procedure Pass [facility] PERIOPERATIVE DEPT [address] [place] [address] Social History Tobacco Use Types Packs/Day Years Used Date Smoking Tobacco: Never Smokeless Tobacco: Never Alcohol Use Standard Drinks/Week Comments Not Currently 0 (1 standard drink = 0.6 oz pur e alcohol) Sex and Gender Information Value Date Recorded Sex Assigned at Not on file Gender Identity Not on file Sexual Orientation Not on file documented as of this encounter Plan of Treatment Not on file documented as of this encounter Visit Diagnoses Not on filedocumented in this encounter Care Teams Computer Security Specialist Relationship Specialty Start Date End Date Enrike Murillo MD [address] [place] [address] Dr [address] [place] [address] PCP - General Internal Medicine 10/16/19 documented as of this encounter Additional Source Comments The information contained in this document represents components of the legal health record. It is not the complete legal health record.[facility]
--- OUTSIDE RECORDS SUMMARY | 2024-11-04 17:35 | XMS_ITS | Patient Health Record ---
Author Organization [facility] lesa Armstrong Address [address] [facility] [place] [address] Care Team Providers Care Attraction Worker Name Role Phone Chidi AVILA [place] Primary Care Provider UnaLisseth Simental Unavailable [phone] Allergies No Known Allergies Reason For Referral [...] Osteoarthritis of midtarsal joint of left foot (0804220030620551 ) Osteoarthritis of midtarsal joint of left foot (M19.072) Active confirmed Vital Signs Height 6 ft in 01/28/2024 Weight 210 lbs 01/28/2024 BMI 28.48 kg/m2 01/28/2024 Encounters Encounter Location Date [facility] [place] [address] 01/28/2024 Lisseth Saenz Pain in left foot [...] and Tailor's bunion of right foot M21.6[address] [facility] [address] [address] 11/15/2023 Lisseth Saenz [facility] [address] 01/28/2024 Lisseth Saenz Assessments Encounter Date Diagnosis (ICD [...] Start Date Coverage End Date Aetsong Iraheta [id number] SHAD Shaikh [phone] [id number] Segundo Kebede Spouse - patient is the spouse of the insured Medical (General) History Medical History History ICD Code High blood pressure Lyme disease Chicken pox Joint implants/screws Surgical History Surgery Date(Month/Year) hip replacement
--- OUTSIDE RECORDS SUMMARY | 2024-11-04 17:35 | XMS_ITS | Encounter Summary ---
Author Organization [facility] Address [facility] [place] [address] [place] [address] Phone Care Team Providers Care Biomedical Engineering Supervisor Name Role Phone Enrike Murillo MD Primary Care Provider [phone] [phone] Encounter Details Date Type Department Care Team ([facility] Contact Info) Description 01/14/2020 Ancillary Orders [facility] [address] [address] Dwaine Edmonds MD [address] [place] [address] [email or web address] Pain Social History Tobacco Use Types Packs/Day Years [...] on file documented as of this encounter Results * [place] Fluoroscopy (01/14/2020 1:16 PM EDT) Narrative [facility] IMG INTERFACES - 01/14/2020 1:16 PM EDT Fluoroscopy was provided during this procedure. Dwaine Edmonds MD IMG [place] MISC [facility] IM INTERFACES documented in this encounter Visit Diagnoses Diagnosis Pain Generalized pain Pain Generalized pain documented in this encounter Care Teams Biomedical Engineering Supervisor Relationship Specialty Start Date End Date Enrike uMrillo MD [address] [place] [address] Dr [address] [place] [address] PCP - General Internal Medicine 10/16/19 documented as of this encounter Additional Source Comments The information contained in this document represents components of the legal health record. It is not the complete legal health record.[facility]
--- OUTSIDE RECORDS SUMMARY | 2024-11-04 17:35 | XMS_ITS ---
Author Organization [facility] Address [address] [place] [address] Care Team Providers Care Sheet Metal Assembler And Riveter Name Role Phone Chidi AVILA, Shirley Primary Care Provider Unava ilLisseth Rodriguez [phone] REASON FOR VISIT Sx booking process Encounters Encounter Location Date Provider Diagnosis [address] [place] [address] 01/28/2024 Lisseth Saenz Plan Of Treatment No Information Progress Notes * Fabio CASSIDYDOB:1965 ( 59 yo M)Acc No.[id number]:01/28/2024 Patient:?Fabio CASSIDY :1965???Age:58 Y???Sex:Male Address:[address] [place], [address] * true * Date:? Generated for Printi ng/Farajendrag/eTransmitting on:?11/04/2024 05:34 PM EDT
--- OUTSIDE RECORDS SUMMARY | 2024-11-04 17:35 | XMS_ITS ---
Author Organization [facility] [place] Address [address] [place] [address] Care Team Providers Care Felt Finisher Name Role Phone Chidi AVILA, Jeddo Primary Care Provider UnaLisseth Simental Unavailable [phone] Allergies No Known Allergies REASON FOR VISIT [...] Osteoarthritis of midtarsal joint of left foot ([id number] ) Osteoarthritis of midtarsal joint of left foot (M19.072) Active confirmed Vital Signs Height 6 ft in 01/28/2024 Weight 210 lbs 01/28/2024 BMI 28.48 kg/m2 01/28/2024 Encounters Encounter Location Date Provider Diagnosis [address] [place] [address] 01/28/2024 Lisseth Saenz Pain in left foot [...] * Fabio CASSIDYDOB:1965 ( 58 yo M)Acc No.[id number]:01/28/2024 Progress Notes Patient:?Fabio Cassidy Provider:?Lisseth Saenz DPM :1965???Age:58 Y???Sex:Male Chaitanya e:01/28/2024 Address:[facility] [address], [place], [place] Pcp:Enrike Murillo MD Subjective: * Chief Complaints: [...] ?Exercise: yes, walking. ?Marital status: . 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 * Medications:?TakingLosartan Potassium 100 MG Tablet [...] ray : Foot, right 3V * Procedure Codes:?98964 X-RAY EXAM OF LEFT FOOT 3V, Modifiers: 26 , [id number] X-RAY EXAM OF RIGHT FOOT 3V, Modifiers: [...] exercise to failure, expense, systemic complications, infection, [id number], prolongued postop course. Patient questions re: the various treatment options available, their successes and potential failures, and correction effects were discussed and the answers were [...] Provider:?Lisseth Saenz DPM Date:? Generated for Yaritza shelley/Valerie/Valeryitting on:?11/04/2024 05:34 PM EDT History and Physical Notes * HPI (History [...]
== END 2024-11-04 15:23 | disposition home or self-care (01) ==
LOC: HO.ENCR 14:04
PROVIDERS: PCP Internal Medicine; Visit Provider Student in an Organized Health Care Education/Training Program
DX: E34.9 Endocrine disorder, unspecified (principal); D75.1 Secondary polycythemia
CPT/HCPCS: 99204

== ENCOUNTER 2024-11-05 08:45 | Outpatient (REF) | payer OTHER, SELFPAY ==
[2024-11-05 09:30] LABS: Hemoglobin 19.4 g/dl (14.0-18.0)
[2024-11-05 09:32] LABS: Hematocrit 56.7 % (42.0-52.0)
[2024-11-05 10:36] LABS: PSA,Total (Free>4and<10) 0.31 ng/mL (0.00-4.00)
[2024-11-06 09:48] LABS: Follicle Stimulating Hormone <0.7 mIU/mL (1.4-12.8); Lutenizing Hormone <0.2 mIU/mL (1.6-15.2)
[2024-11-09 19:04] LABS: Sex Hormone Binding Globulin 34.8 nmol/L (22-77); Testosterone-Albumin 4.4 g/dL (3.6-5.1); Testosterone-Bioavailable 301.7 ng/dL (110.0-575.0); Testosterone-Free 149.8 pg/mL (46.0-224.0); Testosterone-Total 988 ng/dL (250-1100)
== END 2024-11-05 08:46 | disposition home or self-care (01) ==
LOC: HO.LAB 08:45
PROVIDERS: PCP Internal Medicine; Visit Provider Student in an Organized Health Care Education/Training Program
DX: D75.1 Secondary polycythemia (principal); E34.9 Endocrine disorder, unspecified
CPT/HCPCS: 36415; 83001; 83002; 84153; 84270; 84402; 84403; 85014; 85018

== ENCOUNTER 2025-05-18 17:18 | Outpatient (AMB) | payer OTHER, SELFPAY ==
[2025-05-18 17:21] VITALS: BP 128/62; PULSE 86; O2SAT 97; BMI 29.7
--- NOTE | 2025-05-18 17:21 | A.OFFPC_ITS ---
Vital Signs 05/18/25 17:21 Height 6 ft Weight 219 lb BMI 29.7 BP 128/62 Blood Pressure Location Lt brachial Position Sitting Pulse 86 Pulse Source Pulse Oximeter Pulse Oximetry (%) 97 Oxygen Delivery Method Room Air Intake Visit Reasons: hyperlipidemia, HTN, hypotestosteronism Allergies No Known Allergies Allergy (Verified 06/11/25 17:44) Medication List - Last Reconciled 06/11/25 by Enrike Murillo MD [Syringe needle (disposable) 18G x 1 ml As directed] atorvastatin 40 mg PO DAILY 90 days clonidine HCl 0.2 mg PO DAILY 90 days ibuprofen 800 mg PO TID PRN losartan 100 mg PO DAILY 90 days oxycodone 15 mg PO Q6H PRN 6 days oxycodone 15 mg PO Q6H PRN 28 days syringe with needle (BD Luer-Say Syringe) 1 IM every week; tizanidine 4 mg PO BID PRN 30 days Tobacco use date assessed: 09/30/24 Dental Screening Dental Screen Date: 09/30/24 HPI hyperlipidemia, HTN, hypotestosteronism HPI Details Patient comes in today for his follow up visit States that he slipped and fell off a ladder just a couple of hours ago and is presently experiencing increased pain in his left hip, which he states is his good hip Have offered to send patient for x-rays now for further evaluation but he would like to hold off on this for now - states that he will call for x-ray orders if he feels that his symptoms are getting progressively worse but feels at this time that he just pulled some muscles or ligaments as he can still walk and put his weight on his left hip currently without experiencing any significant increased pain in his hip States that he feels okay otherwise He denies any headaches or dizziness Denies any chest pains, no increased shortness of breath No nausea/vomiting, no abdominal pain No change in bowel habits noted States that his chronic low back pain and joint pains remain adequately controlled on his current medications He again was not able get his follow-up labs done prior to his appointment today [facility] Medical History History of obstructive sleep apnea Hypotestosteronism Polycythemia Pure hypercholesterolemia History of Lyme disease Obesity (BMI 30-39.9) Anxiety Primary insomnia Lumbar degenerative disc disease Primary osteoarthritis of right hip Benign essential hypertension Surgical History History of nasal septoplasty History of arthroplasty of right hip Family History Father Pancreatic cancer Mother Brain tumor Social History Housing: Apartment Alcohol intake: never Patient Tobacco Use Status: Never used Tobacco Tobacco use type: Cigarette e-Cigarette/Vaping Use: Never Used Second Hand Smoke Exposure: No service: No Current occupational status: employed Current occupational exposures/hazards: No Cognitive needs: No Hearing needs: No Vision needs: No Questionnaire PHQ-9 Over the last 2 weeks, how often have you been bothered by any of the following problems? 1. Little interest or pleasure in doing things: not at all 2. Feeling down, depressed, or hopeless: not at all 3. Trouble falling or staying asleep, or sleeping too much: not at all 4. Feeling tired or having little energy: not at all 5. Poor appetite or overeating: not at all 6. Feeling bad about yourself - or that you are a failure or have let yourself or your family down: not at all 7. Trouble concentrating on things, such as reading the newspaper or watching television: not at all 8. Moving or speaking so slowly that other people could have noticed. Or the opposite - being so fidgety or restless that you have been moving around a lot more than usual: not at all 9. Thoughts that you would be better off or of hurting yourself in some way: not at all Total score: 0 Depression Screening Interpretation: Negative Depression Screening Done: Yes 68714 - PHQ-9 Billing: Yes Source: Developed by Drs. Gonzalo Riddle, Natali Silva, Jose Angel Quiroga and colleagues, with an educational ernie from [employer]. Thrive Questionnaire Date Thrive assessed: 05/14/25 I am a: Patient What is your living situation today?: I have a steady place to live Within the past 12 months, did the food you bought not last and you didn't have the money to get more?: Never true Within the past 12 months, did you worry whether your food would run out before you got money to buy more?: Never true Do you have trouble paying for medicines?: No Do you have trouble getting transportation to medical appointments?: No Do you have trouble paying your heating and electricity bill?: No Do you have trouble taking care of your child, family member or friend?: No Do you have trouble with day-to-day activities such as bathing, preparing meals, shopping, managing finances, etc.?: No Are you currently unemployed and looking for a job?: No Are you interested in more education?: No Please select the resources that you would like help with: None Currently or been in a relationship where the following occur: No concerns reported THRIVE Score: 0 AUDIT C Alcohol Use Questionnaire (AUDIT-C) 1. How often do you have a drink containing alcohol?: Never 3. How often do you have six or more drinks on one occasion?: Never Total Score: 0 Score Reviewed/Action Taken: Yes EUNICE-7 AMB Questionnaire EUNICE-7 Date EUNICE - 7 assessed: 09/30/24 Feeling nervous, anxious, or on edge: 1 = Several days Not being able to stop or control worryin = Several days Worrying too much about different things: 1 = Several days Trouble relaxin = Several days Being so restless that it is hard to sit still: 0 = Not at all Becoming easily annoyed or irritable: 0 = Not at all Feeling afraid as if something awful might happen: 1 = Several days Total EUNICE-7 score (0-4 normal; 5-9 mild; 10-14 moderate; 15-21 severe): 5 Source: Developed by Drs. Gonzalo Riddle, Natali Silva, Jose Angel Quiroga and colleagues, with an educational ernie from [employer]. Review of Systems Const Denies chills, Denies fatigue, Denies fever(s) and Denies headache(s) ENT Denies dysphagia, Denies dizziness, Denies otalgia, Denies headache(s), Denies neck pain, Denies odynophagia and Denies sore throat Card Denies chest pain, Denies irregular heart rhythm, Denies palpitations and Denies dyspnea Resp Denies chest congestion, Denies cough and Denies dyspnea GI Denies abdominal pain, Denies constipation, Denies dysphagia, Denies heartburn, Denies diarrhea, Denies nausea, Denies odynophagia and Denies vomiting Denies difficulty urinating, Denies dysuria and Denies urinary frequency Musc Reports back pain (over the lower back - chronic), Reports arthralgias (over multiple joints, especially in the right hip; increased L hip pain) and Denies neck pain Skin/Breast Denies rash Neuro Denies dizziness, Denies headache(s) and Denies paresthesias Endo Denies fatigue and Denies palpitations Physical exam (Primary Care) Vital Signs: Last Vital Signs Pulse 86 05/18/25 17:21 BP 128/62 05/18/25 17:21 Pulse Ox 97 05/18/25 17:21 Oxygen Delivery Method Room Air 05/18/25 17:21 BMI result Body Mass Index 29.7 Tobacco/Smoking Status: Tobacco use Status Tobacco use date assessed 09/30/24 05/18/25 17:24 Patient Tobacco Use Status Never used Tobacco 05/18/25 17:24 Tobacco use type Cigarette 05/18/25 17:24 e-Cigarette/Vaping Use Never Used 05/18/25 17:24 PHQ-9: PHQ-9 Score PHQ-9: Total score 0 05/18/25 17:43 Depression Screening Interpretation: Negative Thrive Assessment: Date of Thrive Assessment Date Thrive assessed 05/14/25 05/18/25 17:24 Currently or been in a relationship where the following occur: No concerns reported Const General: no acute distress and alert HENMT Ears: TM's normal bilaterally and EAC's normal Throat: Yes posterior oropharynx normal and Yes tonsils normal (no TP congestion) Neck Neck: Yes no lymphadenopathy and Yes supple Thyroid: Thyroid normal Resp Auscultation: clear to auscultation bilaterally, no rales and no wheezes Cardio Rate: regular rate Rhythm: regular rhythm Heart sounds: no murmurs GI Palpation (GI): Soft to palpation and nontender Auscultation: normal bowel sounds General: Yes no CVA tenderness Back/Spine/Pelvis Back: no CVA tenderness Thoracic/Lumbar Spine: lumbar spinal tenderness Skin Rashes: no rashes Extrem General: Yes no clubbing, cyanosis or edema Right lower extremity: hip/thigh Details: tenderness Location: of the hip Left lower extremity: hip/thigh Details: tenderness Location: of the hip Coding Level of Care Code Est Pt Level 4 (56425) Diagnoses Pure hypercholesterolemia E78.00 Benign essential hypertension I10 Polycythemia D75.1 Hypotestosteronism E34.9 Primary osteoarthritis of right hip M16.11 Strain of left hip, initial encounter S76.012A Encounter type: initial encounter Lumbar degenerative disc disease M51.36 Primary insomnia F51.01 Anxiety F41.9 Obesity (BMI 30-39.9) E66.9 Additional Codes PHQ-9 - 89375 - PHQ-9 Billing: Yes ([id number]) Assessment & Plan Assessment & Plan (1) Pure hypercholesterolemia: Code(s): E78.00 - Pure hypercholesterolemia, unspecified Category: Medical Plan: Patient is again NOT able to get his follow up labs done prior to coming in for his appointment today He has not had his cholesterol levels checked since May 2024 - his total cholesterol was still at 196 mg/dL and LDL cholesterol was still at 129 mg/dL l ast year Reinforced low-cholesterol diet Continue Atorvastatin 40 mg QD Will recheck his labs and fasting lipids KAREN for follow up (2) Benign essential hypertension: Code(s): I10 - Essential (primary) hypertension Category: Medical Plan: Reinforced low-sodium diet - goal is systolic BP of at least 120 to 130 mm or less Patient states that his blood pressure readings have been consistently much lower when he checks his blood pressure at home and they have also improved a lot when he previously lost weight Continue Losartan 50 mg 1 and 1/2 tablets (75 mg) QD; he is also on Clonidine 0.2 mg QD - he takes this mostly for his anxiety but it also helps with his blood pressure as it is an antihypertensive Have advised patient again that his blood pressure may improve with the reduction in dose of his testosterone injections as well as his continued phlebotomy Patient is reminded to continue monitoring his blood pressure regularly/closely (3) Polycythemia: Code(s): D75.1 - Secondary polycythemia Category: Medical Plan: His hemoglobin was elevated again at 19.4 and his hematocrit was also high at 56.7 when he last had his CBC checked back in October 2024 Patient was going for phlebotomy every few weeks for a while but states that he has not done so lately He was following up with hematology (Dr. Anderson) at [facility] regularly before but he has also not been back to see Dr. Anderson in a while now - was last seen sometime in 2021 He has been advised to reach out to Dr. Anderson's office to schedule his follow-up appointment with him [facility] last year but he has yet to do so We will TRY to continue monitoring his CBC regularly although patient compliance is the biggest obstacle here (4) Hypotestosteronism: Comment: Is mostly iatrogenic and NOT age-related Code(s): E34.9 - Endocrine disorder, unspecified Category: Medical Plan: His total testosterone level and free testosterone level were both normal when they were last checked in October 2024 He was getting his testosterone injection 100 mg once a week Have cautioned patient again that high testosterone levels can increase his risk of developing prostate cancer in the future He was getting his testosterone injections from endocrinology at [place] in the past but states that 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 Erickson, who STOPPED his testosterone Rx at his last visit in October 2024 Will recheck his serum testosterone level [facility] for follow-up (5) Primary osteoarthritis of right hip: Comment: S/P total right hip arthroplasty at [facility] on 01/14/2020; S/P physical therapy Code(s): M16.11 - Unilateral primary osteoarthritis, right hip Category: Medical Plan: Patient states that his right hip pain has improved?only minimally with his hip surgery States that his current medications help keep his pain manageable Follow-up with Orthopedics as scheduled (6) Strain of left hip: Code(s): S76.012A - Strain of muscle, fascia and tendon of left hip, initial encounter Category: Medical Qualifiers: Encounter type: initial encounter Qualified Code(s): S76.012A - Strain of muscle, fascia and tendon of left hip, initial encounter Plan: He appears to have strained his left hip earlier today when he fell off a ladder He declined offer today to send him for left hip x-rays for further evaluation, as he feels that he just strained his hip and should start feeling better in a few days Patient is reminded that he can call for x-ray orders at any time if he feels that his left hip symptoms are either not getting any better or are getting progressively worse over the next couple of weeks (7) Lumbar degenerative disc disease: Code(s): M51.36 - Other intervertebral disc degeneration, lumbar region Category: Medical Plan: Reinforced activity and weight lifting restrictions Continue Oxycodone 15 mg every 6 hours as needed, Tizanidine 4 mg twice a day as needed and Ibuprofen 800 mg 3 times a day with food as needed for pain Discussed again that IF he can try to come off his opioid Rx, then he should not need to continue taking his testosterone injections, as his low testosterone level is most likely an iatrogenic result of his chronic opioid Rx His polycythemia may also improve but patient insists that he needs his pain medication to be able to continue working for a living and he is just not ready to give up his work yet at his present age (8) Primary insomnia: Code(s): F51.01 - Primary insomnia Category: Medical Plan: Sleep hygiene reinforced Continue Trazodone 50 mg 1-2 tablets daily at bedtime as needed (9) Anxiety: Code(s): F41.9 - Anxiety disorder, unspecified Category: Medical Plan: Continue Lorazepam 0.5 mg 1 to 3 times a day as needed and Clonidine 0.2 mg QD Follow-up with Psychiatry as scheduled (10) Obesity (BMI 30-39.9): Code(s): E66.9 - Obesity, unspecified Category: Medical Plan: Reinforced diet/exercise as tolerated/lose weight Plan Follow up in 4 months
--- OUTSIDE RECORDS SUMMARY | 2025-05-18 18:38 | XMS_ITS | Clinical Summary ---
Author Organization [facility] Address [address] [place] [address] Phone Care Team Providers Care Resident Manager Name Role Phone Enrike Murillo MD Primary Care Provider [phone] Allergies No known active allergies Medications oxyCODONE 15 MG immediate release tablet Take 15 mg by mouth 4 (four) times a day. Active atorvastatin (LIPITOR) 10 MG tablet Take 10 mg by mouth every evening. Active losartan (COZAAR) 50 MG tablet Take 50 mg by mouth every evening. Active cloNIDine HCL (CATAPRES) 0.2 MG tablet Take 0.2 mg by mouth 2 (two) times a day. Active Medication-Altaf e Text Inject into the muscle once a week. Active acetaminophen (TYLENOL) 500 MG tablet Take 2 tablets (1,000 mg total) by mouth every 6 (six) hours. Do not take more than 3000mg acetaminophen per day (including in other prescribed or fscq-abv-sqavuaf medications). 0 0 Active Additional Information Patient not taking.Reported on 02/13/2020 indomethacin (INDOCIN) 25 MG capsule Take 1 capsule (25 mg total) by mouth 3 (three) times a day with meals. 96 capsule 0 Active Additional Information Patient not taking.Reported on 02/13/2020 ibuprofen (ADVIL,MOTRIN) 800 MG tablet TK 1 T PO TID WF PRF PAIN 0 Active Active Problems Problem Noted Date Diagnosed [...] at Not on file Legal Sex Male 12:53 PM EST Gender Identity Not on file Sexual Orientation Not on file Last Filed Vital Signs Vital Sign Reading Time Taken Comments Blood Pressure 189/100 02/14/2020 10:40 AM EDT Pulse 89 02/14/2020 10:40 AM EDT Temperature 36.6 C (97.9 F) 02/14/2020 8:40 AM EDT Respiratory Rate 18 02/14/2020 10:40 AM EDT [...] LIPID PANEL 1965 DEPRESSION SCREENING 1976 HEPATITIS C SCREENING 1982 HIV ONE-TIME SCREENING (18-6 5 YEARS) 1982 COLOGUARD 2009 COLONOSCOPY 2009 COLORECTAL CANCER SCREENING 2009 FIT TEST 2009 FOBT 2009 SIGMOIDOSCOPY 2009 VIRTUAL COLONOSCOPY 2009 PNEUMOCOCCAL VACCINES (50+ years) (1 of 1 - PCV) 2014 ZOSTER VACCINES (1 of 2) 2014 CREATININE LEVEL 02/12/2021 02/13/2020, 01/15/2020, 01/08/2020 POTASSIUM LEVEL 02/12/2021 02/13/2020, 01/15/2020, 01/08/2020 INFLUENZA VACCINE (#1) 2025 COVID-19 VACCINE (1 - 2023-2 5 season) 2025 Adult Td,Tdap Booster 04/09/2028 04/09/2018 RSV VACCINE [...] age to complete this topic MENINGOCOCCAL VACCINES (B) Aged Out N o longer eligible based on patient's age to complete this topic Medical Devices Implanted Type Area Senior Web Applications Developer Device Identifier Shelf Expiration Date Model / Serial / Lot Acetabular Liner 7.0mm [id number] Size Jj Longevity Highly Crosslinked Polyethylene Offset - [id number] Implanted:Qty: 1 on 01/14/2020 by Dwaine Edmonds MD at [facility] Right: Hip KINJAL / DIV OF Dimple Dough [id number] 11/10/2021 [id number] / / [id number] Description:The implant type , laterality (when applicable), size, and expiration date have been visually and verbally confirmed by the Surgeon, Circulating RN and Scrub Personnel. Acetabular Shell 54mm Size Jj Continuum Tivanium Trabecular Metal Hemisphere Cluster Hole - [id number] Implanted:Qty: 1 on 01/14/2020 by Dwaine Edmonds MD at [facility] Right: Hip KINJAL / DIV [employer] Dimple Dough [id number] 09/12/2029 [id number] / / [id number] Description:The implant type , laterality (when applicable), size, and expiration date have been visually and verbally confirmed by the Surgeon, Circulating RN and Scrub Personnel. Hip Stem 18.0mm Taporloc 133 Mp Rdcd Type1 Pps Ho - [id number] Implanted:Qty: 1 on 01/14/2020 by Dwaine Edmonds MD at [facility] Right: Hip [employer] 04/12/2029 [id number] / / [id number] Description:The implant type , laterality (when applicable), [...] EDT) SODIUM 142 136 - 145 mmol/L [facility] CHLORIDE 100 95 - 106 mmol/L [facility] POTASSIUM 3.7 3.5 - 5.2 mmol/L [facility] CO2 25 20 - 31 mmol/L [facility] BUN 20 9 - 23 mg/dL [facility] CREATININE 1.12 0.50 - 1.30 mg/dL [facility] GLUCOSE 108(H) 74 - 106 mg/dL [facility] CALCIUM 10.0 8.7 - 10.4 mg/dL [facility] EGFR 74 >60 mL/min/1.7 3m2 [facility] Comment:Estimated glomerular filtration rate calculated using the CKD-EPI equation. ANION GAP 17 3 - 17 mmol/L [facility] Blood 02/13/2020 7:43 PM EDT 02/13/2020 8:03 PM EDT us Miguelina Beck MD LAB BLOOD ORDERABLES Final Result [facility] [address] [place] [address] from Last 3 Months or Most Recently Relevant to Health Maintenance Insurance O POS EPO O POS [facility] O POS EPO O POS EPO TNA O POS EPO O POS EPO AETNA O POS EPO POS EPO POS EPO Advance Directives For more information, please contact: [phone] (9AM - 5PM [facility], Sunday-Sunday) * Full Code (Presumed) (Latest Code Status on File) Date Activated Date Inactivated Comments 01/14/2020 5:50 PM * Full Code (Presumed) Date Activated Date Inactivated Comments 01/14/2020 11:07 AM 01/14/2020 5:50 PM Care Teams Resident Manager Relationship Specialty Start Date End Date Enrike Murillo MD [address] [place] [address] [place] [address] PCP - General Internal Medicine 10/16/19 Additional Source Comments The information contained in this document represents components of the legal health record. It is not the complete legal health record.[facility]
--- OUTSIDE RECORDS SUMMARY | 2025-05-18 18:38 | XMS_ITS | Encounter Summary ---
Author Organization [facility] Address [address] [place] [address] Phone Care Team Providers Care Motel Maid Name Role Phone Enrike Murillo MD Primary Care Provider [phone] Encounter Details Date Type Department Care Team (Late st Contact Info) Description 01/14/2020 Procedure Pass [facility] PERIOPERATIVE DEPT [address] [place] [address] Social History Tobacco Use Types Packs/Day Years [...] on filedocumented in this encounter Care Teams Motel Maid Relationship Specialty Start Date End Date Enrike Murillo MD [address] [place] [address] [place] [address] PCP - General Internal Medicine 10/16/19 documented as of this encounter Additional Source Comments The information contained in this document represents components of the legal health record. It is not the complete legal health record.[facility]
--- OUTSIDE RECORDS SUMMARY | 2025-05-18 18:38 | XMS_ITS | Patient Health Record ---
Author Organization [facility] Address [address] [place] [address] Care Team Providers Care Cuff Runner Name Role Phone Chidi AVILA Enrike Primary Care Provider Unajose roberto PacejasonLisseth Unavailable [phone] Allergies No Known Allergies Reason For Referral [...] Osteoarthritis of midtarsal joint of left foot ([id number] ) Osteoarthritis of midtarsal joint of left foot (M19.072) Active confirmed Plan Of Treatment Pending Test Test Name Order Date X ray : Foot, left 3V 01/28/2024 X ray : Foot, right 3V 01/28/2024 Insurance Providers Payer Name Payer Address Payer Phone Subscriber Number Group Number Insured Name Patient Relationship to Insured Coverage Start Date Coverage End Date [employer] [address] [place] [address] [id number] Segundo Kebede Spouse - patient is the spouse of the insured Medical (General) History Medical History History ICD Code High blood pressure Lyme disease Chicken pox Joint implants/screws Surgical History Surgery Date(Month/Year) hip replacement
--- OUTSIDE RECORDS SUMMARY | 2025-05-18 18:38 | XMS_ITS | Clinical Summary ---
Author Organization [facility] Address [address] [place] [address] Care Team Providers Care Steel Grinder Name Role Phone Unavailable Primary Care Provider Unavailabl e Social History Tobacco Use Types Packs/Day Years Used Date Smoking Tobacco: Never Assessed Sex and Gender Information Value Date Recorded Sex Assigned at Not on file Legal Sex Male 4:55 AM EDT Gender Identity Not on file Sexual Orientation Not on file Plan of Treatment Health Maintenance Due Date Last Done Comments Colorectal Cancer Screening: Colonoscopy 1964 DTaP,Tdap,and Td Vaccines (1 - Tdap) 1983 Pneumococcal Vaccine: 50+ Ye ars (1 of 1 - PCV) 2014 Zoster Vaccines (1 of 2) 2014 Cholesterol Screening (Lipid Panel) 09/27/2022 HIV Screening 09/27/2022 Hepatitis C Screening 09/27/2022 Social Influencers of Health Screening 09/27/2022 Hypertension/CHF/CAD Annual BMP Blood Test 09/15/2023 Depression Screening 08/13/2024 COVID-19 Vaccine (1 - 2023-2 5 season) 2025 Influenza Vaccine (#1) 2025 RSV Immunization Adult Patie nts (1 - 1-dose 75+ series) 2039 HIB [...] age to complete this topic Meningococcal B Vaccine Aged Out No l onger eligible based on patient's age to complete this topic RSV Immunization Patients Un ana luisa 20 months Aged Out No longer eligible b ased on patient's age to complete this topic Varicella Vaccines Aged Out No longer eligible based on patient's age to complete this topic
--- OUTSIDE RECORDS SUMMARY | 2025-05-18 18:38 | XMS_ITS | Encounter Summary ---
Author Organization [facility] Address [address] [place] [address] [place] [phone] Phone Care Team Providers Care Window Covering Sales Consultant Name Role Phone Enrike Murillo MD Primary Care Provider [phone] Encounter Details Date Type Department Care Team ([facility] st Contact Info) Description 01/14/2020 Ancillary Orders [facility] [address] [facility], [address] [place] [address] Dwaine Edmonds MD [address] [address] [email or web address] Pain Social History Tobacco Use Types Packs/Day [...] [place] Fluoroscopy (01/14/2020 1:16 PM EDT) Narrative [facility] - 01/14/2020 1:16 PM EDT Fluoroscopy was provided during this procedure. Dwaine Edmonds MD IMG [place] MISC Final Result [facility] documented in this encounter Visit Diagnoses Diagnosis Pain Generalized pain Pain Generalized pain documented in this encounter Care Teams Window Covering Sales Consultant Relationship Specialty Start Date End Date Enrike Murillo MD [address] [place] [address] [place] [id number] PCP - General Internal Medicine 10/16/19 documented as of this encounter Additional Source Comments The information contained in this document represents components of the legal health record. It is not the complete legal health record.[facility]
--- OUTSIDE RECORDS SUMMARY | 2025-05-18 18:38 | XMS_ITS | Data Portability ---
Author Organization [facility] Address [address] [facility] [address] [place] [address] Care Team Providers Care Parent Partner Name Role Phone NAHUM SINGH Primary Care Provider [phone] Assessment Encounter Date Assessment Date Assessment LastModified [...] appointment has been made. He needs a seasonal delivery driver on the day of the procedure. [...] By Organization Details Last Modified Time 10/09/2019 [id number] He was advised against bed rest lasting longer than four days and to continue activities as tolerated. [email or web address] Not available 10/20/2019 16:47:57 Reason for Referral None Reported. Problems Name Problem SNOMED Code Status Onset Date Resolution Date Notes Provider Name and Address Organization Details Recorded Time Arthritis of right hip 24085929703951 01 Active [facility] 0 15:23:58 Problem Notes None [...] Available No t Available BD Regular Bevel Mcgrew 19 gauge x 1 USE TO INJECT TESTOSTER ONE Q WEEK active Not Available Not Available No t Available BD PrecisionGl juan 25 gauge x 1 needle U Q WEEK active Not Available Not Available Not Available Vitals Date Recorded Body height Body mass index (BMI) Body weight Heart rate Oxygen saturation Oxygen saturation in Arterial blood by Pulse oximetry Systolic And Diastolic Systolic And Diastolic Provider Name and Address Organization Details Last Updated DateTime 0 182.88 cm 29.4 kg/m2 93096.5 4 g 90 /min 95 % 95 % 195/106 mm[Hg] 179/99 mm[Hg] Brenda Rojas MA - [facility] 0 15:46:58 Social History None recorded. Functional Status None recorded. Mental Status None recorded. Family History Nothing Reported Notes:Both parents from Cancer (dad pancreatic and glyoblastoma Medical History Condition Response Coronary Artery Disease N Gout N Neuropathy/Neuralgia N Kidney Stones N Hyperthyroidism N Hypothyroidism N Depression N COPD N Hepatitis C N Migrane N Diabetes N Anxiety Disorder N Arthritis Y Seizures/Epilepsy N Hyperlipidemia N Cancer N Stroke N Asthma N HIV/AIDS N Headache N Bipolar Disorder N GERD/Reflux N High Cholesterol Y Liver Disease N Pulmonary Embolism N Fibromyalgia N Irritable Bowel Syndrome N Hypertension Y Osteoporosis N Kidney Disease N Past Encounters Encounter ID Performer Location Encounter Start Date Encounter Closed Date Diagnosis/Indication Diagnosis SNOMED-CT Code Diagnosis ICD10 Code Diagnosis IMO Codes Diagnosis Note [id number] Michael Curry MD PAIN OFFICE [address] [address] 10/09/2019 14:46:57 10/20/2019 16:53:24 Arthritis of right hip [id number] M13.851 Health Concerns Section Related Observation LastModified by Organization Detai ls LastModified Time None Recorded Concern Status LastModified by Organization Details LastModified Time None Recorded Advance Directives Directive None Recorded Payers Insurance Date Sequence Insurance Name Policy Number Policy Nieto Covered Member ID Nieto Member ID Guarantor Name 10/08/[address] [facility] (MEDICAID HMO) [id number] Fabio Yandy [id number] Fabio Yandy 10/26/2019 1 [employer] (POS) Fabio Yandy [id number] Fabio Yandy 10/08/2019 1 [facility] (MEDICAID REPLACEMENT - HMO) [id number] Fabio Yandy [id number] Fabio Yandy 10/08/2019 1 [facility] (HMO) [id number] Fabio Yandy [id number] Fabio Yandy Notes Date Note Type Note Provider Name [...] had injections done by Dr. Alaniz which ahs helped. He feels the last injection did not help.MRI Pelvis shows severe right hip osteoarthritis . End plate edema on the left at L5-S1 . Mild left hip osteoarthritis. Michael Curry MD [address] [place] [address] , [address], [place], [address], [facility] 10/23/2019 09:58:36
== END 2025-05-18 17:51 | disposition home or self-care (01) ==
LOC: HO.HMCH 17:19
PROVIDERS: PCP Internal Medicine; Visit Provider Internal Medicine
DX: E78.00 Pure hypercholesterolemia, unspecified (principal); I10 Essential (primary) hypertension; E66.9 Obesity, unspecified; Z68.29 Body mass index [BMI] 29.0-29.9, adult; D75.1 Secondary polycythemia; E34.9 Endocrine disorder, unspecified; M16.11 Unilateral primary osteoarthritis, right hip; S76.012A Strain of muscle, fascia and tendon of left hip, initial encounter; M51.369 Other intervertebral disc degeneration, lumbar region without mention of lumbar back pain or lower extremity pain; F51.01 Primary insomnia; F41.9 Anxiety disorder, unspecified

== ENCOUNTER → 2025-05-18 17:18 | Outpatient (BNVA) | payer OTHER, SELFPAY | PROVIDERS: PCP Internal Medicine; Visit Provider Internal Medicine | DX: I10 Essential (primary) hypertension (principal); E78.00 Pure hypercholesterolemia, unspecified; D75.1 Secondary polycythemia; E34.1 Other hypersecretion of intestinal hormones; E34.9 Endocrine disorder, unspecified; M16.11 Unilateral primary osteoarthritis, right hip; S76.012A Strain of muscle, fascia and tendon of left hip, initial encounter; M51.360 Other intervertebral disc degeneration, lumbar region with discogenic back pain only; G89.29 Other chronic pain; F51.01 Primary insomnia; F41.9 Anxiety disorder, unspecified; E66.9 Obesity, unspecified; X58.XXXA Exposure to other specified factors, initial encounter; Y93.9 Activity, unspecified; Y92.9 Unspecified place or not applicable; Y99.9 Unspecified external cause status | CPT/HCPCS: 96127 ==